=== PATIENT | male | born 1950 | race Caucasian/White ===

== ENCOUNTER 2016-07-01 07:15 | Emergency (ER) | payer OTHER ==
[2016-07-01 07:29] VITALS: BP 119/79
--- NOTE | 2016-07-01 07:42 | UC ---
Respiratory Complaint HPI - HPI Summary HPI Summary: The patient comes in today for: 1. Coughing, wheezing, post nasal drip, body aches: Onset: 4-5 days. Palliative/provocative: Albuterol inhaler helps. Quality: Irritating cough. Region: Lungs. Severity: 0/10 Time: Cough lasts a few seconds. Associated symptoms: Chest pain: None. Dyspnea: Present. Wheezing: Present Inhaler use: For several years. He has used Flovent in the past, but not in the last few months. Temperature: None taken. Rhinitis: Green. Cough production: Green. Body aches: "slight." 2. Dysuria, weak stream: The patient comes in today for: Onset: Last night. Palliative/provocative: Increased abdominal pressure helped with urination. Quality: Dysuria. Region: Severity: 0/10 at this time. Time: Pain comes and goes with urination Associated symptoms: Prostate disease: "I'm have ongoing prostatitis" and he is seeing (urologist) last seen in August of last year. He is seen once a year. He has not taken any antihistamine for his URI. * * - History of Current Complaint Chief Complaint: UCRespiratory Stated Complaint: COUGH URINARY ISSUE Time Seen by Provider: 07/01/16 07:33 Hx Obtained From: Patient, Family/Inspector Poising - Allergies/Home Medications Allergies/Adverse Reactions: Allergies Allergy/AdvReac Type Severity Reaction Status Date / Time Sulfa Antibiotics Allergy Severe Rash And Verified 03/29/16 18:11 Itching PMH/Surg Hx/FS Hx/Imm Hx Previously Healthy: No - Arthritis, chronic prostatitis Endocrine History Of: Denies: Diabetes, Thyroid Disease, Hyperthyroidism, Hypothyroidism, Dyslipidemia Cardiovascular History Of: Denies: Cardiac Disorders, Hypertension, Pacemaker/ICD, Myocardial Infarction , Congestive Heart Failure, Atrial Fibrillation, Deep Vein Thrombosis, Bleeding Disorders Respiratory History Of: Reports: Asthma - rare Denies: COPD, Bronchitis, Pneumonia, Pulmonary Embolism GI/ History Of: Denies: Gastroesophageal Reflux, Ulcer, Gastrointestinal Bleed, Gall Bladder Disease, Kidney Stones, Diverticulitis, Renal Disease, Urosepsis Neurological History Of: Denies: TIA, CVA, Dementia, Seizures, Migraine Psychological History Of: Denies: Anxiety, Depression, Bipolar Disorder, Schizophrenia, Post Traumatic Stress Disorder Cancer History Of: Denies: Lung Cancer, Colorectal Cancer, Breast Cancer, Prostate Cancer, Cervical Cancer Other History Of: Negative For: HIV, Hepatitis B, Hepatitis C, Anticoagulant Therapy - Surgical History Surgical History: Yes Surgery Procedure, Year, and Place: APPENDECTOMY. BILATERAL HAND SURGERY. november LEFT pernell-ureter CORRECTION - Family History Known Family History: Positive: Respiratory Disease - COPD in father (smoker) Negative: Cardiac Disease, Hypertension - Social History Occupation: Employed Full-time Alcohol Use: Occasionally Substance Use Type: None Smoking Status (MU): Former Smoker When Did the Patient Quit Smoking/Using Tobacco: 50 YRS - Immunization History Most Recent Influenza Vaccination: n/a Most Recent Tetanus Shot: <5yrs Most Recent Pneumonia Vaccination: n/a Review of Systems Constitutional: Negative Skin: Negative Eyes: Negative ENT: Nasal Discharge Respiratory: Cough Cardiovascular: Negative Gastrointestinal: Negative Genitourinary: Dysuria, Hematuria Musculoskeletal: Arthralgia All Other Systems Reviewed And Are Negative: Yes Physical Exam Triage Information Reviewed: Yes Appearance: Well-Appearing, No Pain Distress, Well-Nourished Vital Signs: Initial Vital Signs Temp 98.5 F 07/01/16 07:22 Pulse 77 07/01/16 07:22 Resp 18 07/01/16 07:22 BP 119/79 07/01/16 07:22 Pulse Ox 95 07/01/16 07:22 Vital Signs Reviewed: Yes Eyes: Positive: Conjunctiva Clear. Negative: Discharge ENT: Negative: Hearing grossly normal - He is slightly poor of hearing., Pharyngeal erythema, Nasal congestion, Nasal drainage, TM bulging, TM dull, TM red, Tonsillar swelling, Tonsillar exudate Dental: Negative: Gross Decay/Caries @, Dental Fracture @ Neck: Positive: Supple, Nontender, No Lymphadenopathy. Negative: Nuchal Rigidity Respiratory: Positive: Chest non-tender, No respiratory distress, No accessory muscle use, Wheezing - Slightly scattered wheezing.. Negative: Rhonchi Cardiovascular: Positive: RRR, No Murmur Abdomen Description: Positive: Nontender, No Organomegaly, Soft. Negative: Distended, Guarding Musculoskeletal: Positive: Strength Intact, ROM Intact Neurological: Positive: Alert, Muscle Tone Normal Psychological: Positive: Age Appropriate Behavior, Consolable Skin: Negative: rashes, breakdown UC Diagnostic Evaluation - Laboratory O2 Sat by Pulse Oximetry: 95 Diagnostic Studies Comment: Urine screen: Specific gravity: 1.015. WBC: 500. Nitrite: Positive. Blood: 5-10. Protein: 30. Glucose: (-) Respiratory Course/Dx - Course Course Of Treatment: Patient will be put on Levaquin to cover URI and prostatitis. - Differential Dx/Diagnosis Provider Diagnoses: Sinusitis. bronchitis. prostatitis. UTI. Discharge - Discharge Plan Condition: Stable Disposition: HOME Patient Education Materials: Prostatitis (ED), Sinusitis (ED), Acute Bronchitis (ED), Urinary Tract Infection in Men (ED) Additional Instructions: See your urologist for your urinary problems as soon as you can. Double up on your Flomax until you see your urologist or primary care provider. Please see your primary care provider in a week to see how well you are doing. If you get worse, please be seen sooner in the ER or through us.
== END 2016-07-01 08:21 | disposition home or self-care (01) ==
LOC: UCEAST 07:15
DX: J32.9 Chronic sinusitis, unspecified (principal); J40 Bronchitis, not specified as acute or chronic; N41.9 Inflammatory disease of prostate, unspecified; N39.0 Urinary tract infection, site not specified; R31.9 Hematuria, unspecified; Z88.2 Allergy status to sulfonamides; Z87.891 Personal history of nicotine dependence
CPT/HCPCS: 81002; 87077; 87086; 87186; 99212; G0463

== ENCOUNTER 2018-02-08 09:20 | Day surgery (SDC) | payer MEDICARE, OTHER ==
[~2018-02-08 09:20] MED LIST: Acetaminophen TAB* 325 MG PO PRN; Buffered Lidocaine 0.9% SYRIN* 5 ML/SYR SYRINGE INTRADERM ONE
[2018-02-08] MEDS ORDERED: Midazolam* 1 MG/ML 5 ML VIAL (5 MG) ONE (11:17)
[2018-02-08] MEDS ORDERED: fentaNYL* 50 MCG/ML 2 ML VIAL (100 MCG VIAL) ONE (11:27)
[2018-02-08] MEDS ORDERED: Lidocaine 1%* 5 ML VIAL ONE (12:24)
[2018-02-08] MEDS ORDERED: Neomycin/Polymy/Dex OPHTH.OIN* 3.5 GM ONE (12:24)
[2018-02-08] MEDS ORDERED: Phenylephr/Ketorolac 1%/0.3% OPH DROP BTL ONE (12:24)
[2018-02-08] MEDS ORDERED: Tetracaine 0.5% OPTH.SOL 4 ML* 1 DROP BTL ONE (12:24)
[2018-02-08] MEDS ORDERED: Ketorolac 0.5% OPHTH (NF) 0.5 % 5 ML BTL ONE (12:24)
[2018-02-08] MEDS ORDERED: Phenylephrine 2.5% OPTH.SOL* 2 ML BTL ONE (12:24)
[2018-02-08] MEDS ORDERED: Tropicamide 1% OPTH.SOL* BTL ONE (12:24)
[2018-02-08] MEDS ORDERED: Cyclopentolate 1% OPTH.SOL* 2 ML BTL ONE (12:24)
[2018-02-08] MEDS ORDERED: Propofol* 10 MG/ML 20 ML BTL IV PUSH ONE (12:33)
[2018-02-08 12:50] VITALS: BP 125/82
--- NOTE | 2018-02-09 11:15 | OP ---
DATE OF OPERATION: 02/08/18 - [facility] DATE OF : 50 SURGEON: Dr. Zion Perez. FRAME TENDER: None. ANESTHESIA: Topical with intravenous sedation. PRE-OP DIAGNOSIS: Cataract with pseudoexfoliation material, left eye. POST-OP DIAGNOSIS: Cataract with pseudoexfoliation material, left eye. OPERATIVE PROCEDURE: Phacoemulsification and cataract extraction with posterior chamber intraocular lens implant, left eye. COMPLICATIONS: None. BLOOD LOSS: None. DESCRIPTION OF PROCEDURE: The patient was brought to the operating room and received a drop of Tetracaine as well as intravenous sedation. He was prepped and draped in the usual sterile fashion for ophthalmic surgery and attention was directed to the left eye where a speculum was placed. It was noted that this pupil measured approximately 3.5 mm despite preoperative dilating drops. A paracentesis was created at the 5 o'clock position and 0.1 cc of 1 percent preservative-free lidocaine was injected into the anterior chamber followed by DisCoVisc. The eye was digitally stabilized while a 2.75 mm keratome was used to create a triplanar clear corneal incision. A Malyugin ring was introduced into the eye atraumatically. Omidria was added to the irrigating solution. A continuous curvilinear capsulorrhexis was created with a cystotome and Utrata forceps. BSS on a cannula was used to gently hydrodissect the lens from the capsule. With reduced pressure in the system, phacoemulsification was performed in a [id number] technique to create 4 fragments. These fragments were gently and removed using the phacoemulsification machine. Residual cortical material was irrigated and aspirated out of the eye. DisCoVisc was used to inflate the capsular bag. An AU00T0 20.5 diopter lens was and inserted into the capsular bag. DisCoVisc was removed from the posterior aspect of the lens. DisCoVisc was placed in the anterior chamber. The Malyugin ring was atraumatically removed. Residual DisCoVisc was removed from the eye using irrigation/aspiration. BSS on a cannula was used to hydrate the corneal stroma and seal the wound. At the end of the case, the pupil was round. The eye pressure appeared normal and the wound was watertight. The lens was stable and centered. The speculum was removed and topical Maxitrol ointment was placed on the surface of the eye. The eye was closed, patched and shielded and the patient was sent to the recovery room in stable condition with post operative instructions and followup appointment given. [id number]/CPS #: [id number] MTDD
== END 2018-02-08 13:14 | disposition home or self-care (01) ==
LOC: OREAST 09:20
PROVIDERS: ATTEND Ophthalmology
DX: H25.042 Posterior subcapsular polar age-related cataract, left eye (principal); Z87.891 Personal history of nicotine dependence; J45.909 Unspecified asthma, uncomplicated; M19.90 Unspecified osteoarthritis, unspecified site; Z79.899 Other long term (current) drug therapy
CPT/HCPCS: A9270-GY; C9447; J2250; J2704; J3010; V2632

== ENCOUNTER 2018-02-28 20:10 | Emergency (ER) | payer MEDICARE, OTHER ==
--- NOTE | 2018-02-28 23:13 | ED ---
Abdominal Pain/Male - HPI Summary HPI Summary: 67 y/o male presents to the ED c/o severe ABD pain and constipation for several days. Pt states he can feel a "large hard mass" that he cannot push out. Severe 10/10 pain aggravated with movement. 1x BM in 6 days - pt has not gone in 4 days. Shoulder sx 1 week ago, pt has been on opioids. Denies vomiting. - History of Current Complaint Chief Complaint: EDAbdPain Stated Complaint: CONSTIPATED Time Seen by Provider: 02/28/18 23:07 Hx Obtained From: Patient Onset/Duration: Lasting Days, Still Present Timing: Constant Severity Currently: Severe Pain Intensity: 10 Pain Scale Used: 0-10 Numeric Aggravating Factor(s): Movement - and barrett Alleviating Factor(s): Nothing Associated Signs And Symptoms: Negative: Vomiting - Allergies/Home Medications Allergies/Adverse Reactions: Allergies Allergy/AdvReac Type Severity Reaction Status Date / Time Sulfa (Sulfonamide Allergy Rash And Verified 02/28/18 20:16 Antibiotics) Itching PMH/Surg Hx/FS Hx/Imm Hx Previously Healthy: No Endocrine/Hematology History: Denies: Hx Anticoagulant Therapy, Hx Diabetes, Hx Thyroid Disease Cardiovascular History: Denies: Hx Congestive Heart Failure, Hx Deep Vein Thrombosis, Hx Hypertension , Hx Myocardial Infarction, Hx Pacemaker/ICD Respiratory History: Reports: Hx Asthma - ROUTINE AND PRN INHALERS, Other Respiratory Problems/Disorders - REACTIVE AIRWAY, AND [place] FEVER, HISTOPLASMOSIS INFECTION Denies: Hx Chronic Obstructive Pulmonary Disease (COPD), Hx Lung Cancer, Hx Pneumonia, Hx Pulmonary Embolism GI History: Denies: Hx Gall Bladder Disease, Hx Gastrointestinal Bleed, Hx Ulcer, Hx Urosepsis History: Denies: Hx Kidney Stones, Hx Renal Disease Comment Only: Other Problems/Disorders - 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 BILATERAL HAND SURGERY. november LEFT pernell-ureter CORRECTION Hx Anesthesia Reactions: No Infectious Disease History: No Infectious Disease History: Reports: Hx of Known/Suspected MRSA Denies: Hx Hepatitis, Hx Human Immunodeficiency Virus (HIV), History Other Infectious Disease, Traveled Outside the [place] in Last 30 Days - Family History Known Family History: Positive: None, Respiratory Disease - COPD in father ( smoker) Negative: Cardiac Disease, Hypertension - Social History Alcohol Use: Occasionally Substance Use Type: Reports: None Smoking Status (MU): Former Smoker Amount Used/How Often: 5-6 CIGARETTES PER DAY X 2 YEARS Have You Smoked in the Last Year: No Review of Systems Constitutional: Negative Eyes: Negative ENT: Negative Cardiovascular: Negative Respiratory: Negative Positive: Abdominal Pain, Other - constipation. Negative: Vomiting Genitourinary: Negative Musculoskeletal: Negative Skin: Negative Neurological: Negative Psychological: Normal All Other Systems Reviewed And Are Negative: Yes Physical Exam - Summary Physical Exam Summary: Appearance: Well-appearing, Well-nourished, lying in bed comfortably Skin: Warm, dry, no obvious rash Eyes: sclera anicteric, no conjunctival pallor ENT: mucous membranes moist, pharynx appears normal Neck: Supple, nontender Respiratory: Clear to auscultation, no signs of respiratory distress Cardiovascular: Normal S1, S2. No murmurs. Normal distal pulses in tibial and radial bilaterally. Abdomen: Soft, nontender, normal active bowel sounds present Musculoskeletal: Normal, Strength/ROM Intact Neurological: A&Ox3, awake and alert, mentation is normal, speech is fluent and appropriate Psychiatric: affect is normal, does not appear anxious or depressed Rectal: Large fecal impaction. Pt did not tolerate manual disimpaction. Triage Information Reviewed: Yes Vital Signs On Initial Exam: Initial Vitals Temp Pulse Resp BP Pulse Ox 100.7 F 85 18 148/90 95 02/28/18 20:13 02/28/18 20:13 02/28/18 20:13 02/28/18 20:13 02/28/18 20:13 Vital Signs Reviewed: Yes Diagnostics - Vital Signs Vital Signs Temp Pulse Resp BP Pulse Ox 02/28/18 22:48 85 155/94 96 02/28/18 22:47 82 94 02/28/18 20:13 100.7 F 85 18 148/90 95 - Laboratory Lab Statement: Any lab studies that have been ordered have been reviewed, and results considered in the medical decision making process. Abdominal Pain Fem Course/Dx - Course Assessment/Plan: Pt constipated for 6 days. Feels "large hard mass that he cannot get out". Shoulder sx 6 days ago, pt has been on opioids. Pt did not first tolerate manual disimpaction. Pt will be d/c home given golytely. - Diagnoses Provider Diagnoses: Fecal impaction Discharge - Sign-Out/Discharge Documenting (check all that apply): Patient Departure - Discharge Plan Condition: Good Disposition: HOME Patient Education Materials: Fecal Impaction (ED) Referrals: Chai Velazquez DO [Primary Care Provider] - Additional Instructions: Take the golytely, 8 oz every 15 minutes until you pass the stool. It has softened with the enemas and I was able to break it up somewhat manually, so hopefully this will get it cleared out. - Billing Disposition and Condition Condition: GOOD Disposition: Home - Attestation Statements Document Initiated by Scribe: Yes Documenting Scribe: Bob Nation Provider For Whom Kurt is Documenting (Include Credential): Robby Hernandez MD Scribe Attestation: Bob Sims, scribed for Robby Hernandez MD on 03/04/18 at 1835. Scribe Documentation Reviewed: Yes Provider Attestation: The documentation as recorded by the Bob hernandez accurately reflects the service I personally performed and the decisions made by me, Robby Hernandez MD
[2018-03-01] MEDS ORDERED: PEG 3000 GI LAVAGE* 1 GALLON PO ONE (01:00)
[2018-03-01 01:27] VITALS: BP 142/81
== END 2018-03-01 01:28 | disposition home or self-care (01) ==
LOC: ED 20:10
DX: K56.41 Fecal impaction (principal); Z87.891 Personal history of nicotine dependence; R10.9 Unspecified abdominal pain
CPT/HCPCS: 99283; A9270-GY

== ENCOUNTER 2018-03-01 10:43 | Observation (INO) | payer MEDICARE, OTHER ==
[2018-03-01] MEDS ORDERED: NS 0.9% 1000 ML* 1,000 ML IV ONE (10:52)
--- NOTE | 2018-03-01 11:03 | ED ---
GI/ HPI - HPI Summary HPI Summary: This pt is a 67 y/o male presenting to [facility] c/o rectal pain and constipation. Pt reports he has not had a bowel movement in 6 days. He states that 1 week ago he had right shoulder surgery and was given hydrocodone. Per , they did not follow the stool softner instructions as they had been advised after the surgery. Pt raters his rectal pain today 10/10 in severity. Pt was in the ED last night with the same complaints. He states the doctor was able to reach the stool but was not able to remove it. He was given 2 enemas and was discharged home with colonoscopy fluid (golytely). Pt states despite the medications he was unable to have a bowel movement. Pt presents today with increased rectal pain. Denies nausea, vomiting, chest pain, SOB. He is noted to have temperature of 100.2 F in the ED. - History of Current Complaint Chief Complaint: EDRectalPain Time Seen by Provider: 03/01/18 10:52 Stated Complaint: RECTAL PAIN Hx Obtained From: Patient Onset/Duration: Started Days Ago - 6, Still Present Timing: Lasting Days Current Severity: Severe Pain Intensity: 10 Location of Pain: Rectal Associated Signs and Symptoms: Positive: Rectal Pain, Constipation, Fever - low grade today Aggravating Factor(s): Nothing Alleviating Factor(s): Nothing - Additional Pertinent History Primary Care Physician: [id number] - Allergy/Home Medications Allergies/Adverse Reactions: Allergies Allergy/AdvReac Type Severity Reaction Status Date / Time Sulfa (Sulfonamide Allergy Rash And Verified 02/28/18 20:16 Antibiotics) Itching Home Medications: Home Medications Acetaminop/Codeine 30 MG TAB* [Tylenol/Codeine 30 MG TAB*] 1 tab PO TID PRN [History Confirmed 03/01/18] Albuterol 2.5MG/3ML (0.083%)* [Ventolin 2.5 MG/3 ML NEB.SHOSHANA*] 2.5 mg INH QID PRN 03/01/18 [History Confirmed 03/01/18] Albuterol inh POWDER (NF) [Proair Respiclick] 1 puff INH Q6HR PRN 03/01/18 [ History Confirmed 03/01/18] Ascorbic Acid [C-500] 1,500 mg PO DAILY 03/01/18 [History Confirmed 03/01/18] Budesonide/Formote 160/4.5(NF) [Symbicort 160/4.5 (NF)] 2 puff INH BID 03/01/18 [History Confirmed 03/01/18] Cholecalciferol TAB* [Vitamin D TAB*] 2,000 units PO DAILY 03/01/18 [History Confirmed 03/01/18] Diclofenac Sodium EC TAB* [Voltaren EC TAB*] 75 mg PO BID 03/01/18 [History Confirmed 03/01/18] Glucosa Alberto 2Kcl/Chondroitin Alberto [Glucosamine & Chondroitin Cap] 2 cap PO DAILY [History Confirmed 03/01/18] Naproxen Sodium [Aleve] 220 mg PO Q6HR PRN 03/01/18 [History Confirmed 03/01/18] [place]-3S/Dha/Epa/Fish Oil [Fish Oil 1,200 mg Softgel] 1 cap PO DAILY 03/01/18 [ History Confirmed 03/01/18] Pseudoephedrine HCL ER TAB* [Sudafed 12 Hour*] 240 mg PO BID PRN 03/01/18 [ History Confirmed 03/01/18] Shark Cartilage [Shark Fin Cartilage] 2,220 mg PO DAILY 03/01/18 [History Confirmed 03/01/18] Tiotropium CAP.INH* [Spiriva CAP.INH*] 2 cap INH DAILY 03/01/18 [History Confirmed 03/01/18] Turmeric Root Extract [Turmeric Curcumin] 1,000 mg PO DAILY 03/01/18 [History Confirmed 03/01/18] Vitamin B Complex CAP* [B Complex CAP*] 2 cap PO DAILY 03/01/18 [History Confirmed 03/01/18] Vitamin E CAP* 800 unit PO DAILY 03/01/18 [History Confirmed 03/01/18] PMH/Surg Hx/FS Hx/Imm Hx Endocrine/Hematology History: Denies: Hx Anticoagulant Therapy, Hx Diabetes, Hx Thyroid Disease Cardiovascular History: Denies: Hx Congestive Heart Failure, Hx Deep Vein Thrombosis, Hx Hypertension , Hx Myocardial Infarction, Hx Pacemaker/ICD Respiratory History: Reports: Hx Asthma - ROUTINE AND PRN INHALERS, Other Respiratory Problems/Disorders - REACTIVE AIRWAY, AND [place] FEVER, HISTOPLASMOSIS INFECTION Denies: Hx Chronic Obstructive Pulmonary Disease (COPD), Hx Lung Cancer, Hx Pneumonia, Hx Pulmonary Embolism GI History: Denies: Hx Gall Bladder Disease, Hx Gastrointestinal Bleed, Hx Ulcer, Hx Urosepsis History: Denies: Hx Kidney Stones, Hx Renal Disease Comment Only: Other Problems/Disorders - 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 BILATERAL HAND SURGERY. november LEFT pernell-ureter CORRECTION Hx Anesthesia Reactions: No Infectious Disease History: No Infectious Disease History: Reports: Hx of Known/Suspected MRSA Denies: Hx Hepatitis, Hx Human Immunodeficiency Virus (HIV), History Other Infectious Disease, Traveled Outside the [place] in Last 30 Days - Family History Known Family History: Positive: Respiratory Disease - COPD in father (smoker) Negative: Cardiac Disease, Hypertension - Social History Alcohol Use: Occasionally Substance Use Type: Reports: None Smoking Status (MU): Former Smoker Amount Used/How Often: 5-6 CIGARETTES PER DAY X 2 YEARS Have You Smoked in the Last Year: No Review of Systems Positive: Fever - low grade Negative: Chest Pain Negative: Shortness Of Breath Gastrointestinal: Other - POS: constipation, rectal pain Negative: Vomiting, Nausea All Other Systems Reviewed And Are Negative: Yes Physical Exam - Summary Physical Exam Summary: VITAL SIGNS: Reviewed. GENERAL: Patient is a well-developed and nourished male. Patient is in distress secondary to pain in rectum. HEAD AND FACE: Normocephalic and atraumatic. EYES: PERRLA, EOMI x 2, No injected conjunctiva. EARS: Hearing grossly intact. Ear canals and tympanic membranes are WNL. MOUTH: Oropharynx within normal limits. NECK: Supple, trachea is midline, no adenopathy, no JVD. CHEST: Symmetric, no tenderness at palpation LUNGS: Clear to auscultation bilaterally. No wheezing or crackles. CVS: RRR, S1 and S2 present, no murmurs or gallops appreciated. ABDOMEN: Soft, lower abdominal tenderness. No signs of distention. Decreased bowel sounds. No rebound no guarding, and no masses palpated. No abdominal bruit or pulsations. RECTAL EXAM: small amount of soft tool. In the proximal aspect there is hard stool that I'm able to touch but unable to reach. EXTREMITIES: FROM in all major joints, no edema, no cyanosis or clubbing. NEURO: Alert and oriented x 3. No acute neurological deficits. Speech is normal. SKIN: Dry and warm Triage Information Reviewed: Yes Vital Signs On Initial Exam: Initial Vitals Temp Pulse Resp BP Pulse Ox 100.2 F 110 18 137/99 96 03/01/18 10:46 03/01/18 10:46 03/01/18 10:46 03/01/18 10:46 03/01/18 10:46 Vital Signs Reviewed: Yes Diagnostics - Vital Signs Vital Signs Temp Pulse Resp BP Pulse Ox 03/01/18 10:46 100.2 F 110 18 137/99 96 - Laboratory Result Diagrams: 03/02/18 06:50 03/02/18 06:50 Lab Statement: Any lab studies that have been ordered have been reviewed, and results considered in the medical decision making process. - Radiology Abdomen XR Xray Interpretation: Positive (See Comments) - IMPRESSION: Air-fluid levels in the colon which may represent colitis or enterocolitis. No evidence of small bowel dilatation is noted. Dr. Sandoval has reviewed this report. Radiology Interpretation Completed By: Radiologist - CT Abdomen/Pelvis CT CT Interpretation Completed By: Radiologist Summary of CT Findings: IMPRESSION: Large amount of stool within the rectosigmoid colon including a stool ball within the rectum. The remainder of the colon is filled with liquid stools. Hepatomegaly with fatty infiltration of the liver. Dr. Sandoval has reviewed this report. - EKG 11:18 Cardiac Rate: NL - at 81 bpm EKG Rhythm: Sinus Rhythm EKG Interpretation: No ST elevations. Q wave in lead III. ST depression in leads V4-V6. GIGU Course/Dx - Course Assessment/Plan: This pt is a 67 y/o male presenting to [facility] ED c/o rectal pain and constipation. Pt reports he has not had a bowel movement in 6 days. He states that 1 week ago he had right shoulder surgery and was given hydrocodone. Per , they did not follow the stool softener instructions as they had been advised after the surgery. Pt raters his rectal pain today 10/10 in severity. Pt was in the ED last night with the same complaints. He states the doctor was able to reach the stool but was not able to remove it. He was given 2 enemas and was discharged home with Golytely. . Pt states despite the medications he was unable to have a bowel movement. Pt presents today with increased rectal pain. Denies nausea, vomiting, chest pain, SOB. Patient had 2 colonoscopies 1 year ago with normal results in the [facility]. He denies smoking. Blood work without any significant abnormality except for glucose of 166, CRP of 29.5. During the physical exam I noticed that the patient has some lower abdominal tenderness however when I performed the rectal exam the patient is having severe pain. I was able to touch with my finger some of the hard stool however the patient is not able to tolerate digital disimpaction. Abdomen x- ray impression: Air fluid levels in the colon which may represent colitis or enterocolitis. No evidence of small bowel dilation is noted. Blood work without any significant abnormality except for glucose 166, CRP of 29.5. I discussed the case with Dr. Rosales from GI and he recommends an abdominal pelvic CT with by mouth and IV contrast and admission to the hospitalist. I discussed the case with Dr. Finney who accepted the patient for admission. The patient continues to be uncomfortable, he was given Toradol for the pain. I am unable to give narcotics because that would worsen the symptoms of constipation. Dr. Rosales came and with conscious sedation he disimpacted the patient. Patient will be admitted to the hospitalist services. - Diagnoses Provider Diagnoses: Abdominal pain, Constipation - Physician Notifications Discussed Care Of Patient With: Zion Rosales Time Discussed With Above Provider: 13:07 Instructed by Provider To: Other - I discussed with Dr. Rosales, GI, who recommends cat scan and admission. [13:52] I discussed with Dr. Finney, hospitalist, who accepted pt for admission. Discharge - Sign-Out/Discharge Documenting (check all that apply): Patient Departure - Admit to [facility] All imaging exams completed and their final reports reviewed: Yes - Discharge Plan Condition: Stable Disposition: ADMITTED TO [facility] - Billing Disposition and Condition Condition: STABLE Disposition: Admitted to [facility] - Attestation Statements Document Initiated by Scribe: Yes Documenting Scribe: Mellissa Sullivan Provider For Whom Scribe is Documenting (Include Credential): Salo Sandoval MD Scribe Attestation: I, Mellissa Sullivan, scribed for Salo Sandoval MD on 03/02/18 at 1809. Scribe Documentation Reviewed: Yes Provider Attestation: The documentation as recorded by the [email or web address] accurately reflects the service I personally performed and the decisions made by me, Salo Sandoval MD
[2018-03-01 11:15] LABS: ABS Basophils 0.1 10^3/ul (0-0.2); ABS Eosinophils 0.1 10^3/ul (0-0.6); ABS Lymphocytes 1.7 10^3/ul (1.0-4.8); ABS Monocytes 1.1 10^3/ul (0-0.8); ABS Nucleated RBC 0 10^3/ul; Eosinophil % 1.2 % (0-6); Hematocrit 44 % (42-52); Hemoglobin 15.3 g/dl (14.0-18.0); Lymphocyte % 17.2 % (25-47); Mean Corpuscular HGB Conc 35 g/dl (31-36); Mean Corpuscular Hemoglobin 32 pg (27-31); Mean Corpuscular Volume 91 fL (80-94); Mean Platelet Volume 8.2 um3 (7.4-10.4); Nucleated Red Blood Cells % 0; Platelet Count 262 10^3/ul (150-450); Red Cell Distribution Width 14 % (10.5-15); White Blood Count 10.1 10^3/ul (3.5-10.8)
[2018-03-01] MEDS ORDERED: Ketorolac INJ* 30 MG/ML 1 ML VIAL IV PUSH ONE (11:20)
[2018-03-01 11:47] LABS: EGFR Non-African American 64.1 (>60)
--- NOTE | 2018-03-01 12:06 | RAD ---
Indication: Rectal pain and constipation. Flat and upright views of the abdomen demonstrates air-fluid level in the air distended colon. The possibility of colitis or enteritis should BE considered. Ossicles margins and organ silhouettes are unremarkable. IMPRESSION: Air-fluid levels in the colon which may represent colitis or enterocolitis. No evidence of small bowel dilatation is noted.
--- OUTSIDE RECORDS SUMMARY | 2018-03-01 12:11 | XMS REPORT | Continuity of Care Document ---
:1950 External Reference #:[id number] Author Name Zion Perez M.D. Address 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 Active Onset: 12/19/2015 Nuclear senile cataract Zion Perez M.D. Active Family History Date Family Member(s) Problem(s) Comments Father Emphazema Father Kidney Disease Mother Depression & Anxiety Mother Alzheimer's Disease Social History Type Date Description Comments Sex Unknown ETOH Use Occasionally consumes alcohol Tobacco Use Start: Unknown Patient has never smoked Smoking Status Reviewed: 02/09/18 Patient has never smoked Allergies, Adverse Reactions, Alerts Date Description Reaction Status Severity Comments 12/19/2015 Sulfa Antibiotics Active Medications Medication Date Status Form Strength Qnty SIG Indications Ordering Provider Vigamox Active Solution 0.5% 9ml 1 drop Zion 018 drops Perez, left M.D. eye four times a day Ketorolac Active Solution 0.5% 10ml 1 drops Zion Tromethamine 018 left Perez, eye M.D. twice a day Pred Forte Active Suspension 1% 10ml 1 drops Zion 018 left Perez, eye M.D. four times a day Proair HFA 00/00/0 Active Aerosol 108(90Base) John Paul, 000 mcg/Act Riya, PRETZEL COOKER Diclofenac Active Tablets DR 75mg [place], Sodium 000 Riya, PRETZEL COOKER Hydrocodone-Kamer[place] Active Tablets 5-325mg Unknown taminophen 000 Amoxicillin/Cla Active Tablets 875-125mg Unknown vulanate 000 Potassium Tamsulosin HCL Active Capsules 0.4mg Unknown 000 Flovent HFA Active Aerosol 110mcg/Act John Paul, 000 Riya, PRETZEL COOKER Immunizations Description No Information Available Vital Signs Date Vital Result Comment 02/09/2018 10:03am Intraocular Pressure Left Eye 17 mmHg 01/20/2018 2:31pm Intraocular Pressure Right Eye 16 mmHg Intraocular Pressure Left Eye 16 mmHg 11/05/2017 1:11pm Cornea Thickness Left Eye 545 m Cornea Thickness Right Eye 547 m Pachymetry adjusted IOP Right Eye 0 Pachymetry adjusted IOP Left Eye 0 07/08/2017 8:37am Intraocular Pressure Right Eye 15 mmHg Intraocular Pressure Left Eye 15 mmHg Results Description No Information Available Procedures Date Code Description Status 01/20/2018 21215 Ophthalmic Biometry By Partial Coherence Interferometry Completed W/Intra 01/20/2018 71995 Eye Exam Est Intermediate Completed 11/05/2017 74517 Oct, Optic Nerve Completed 11/05/2017 18051 Visual Field Exam Extended, Unilateral Or Bilateral Completed 11/05/2017 86452 Eye Exam Est Intermediate Completed 11/05/2017 32876 Corneal Pachymetry, Unilateral/Bilateral Completed 07/08/2017 44123 Ophthalmoscopy Subsequent Completed 07/08/2017 25796 Refraction Completed 07/08/2017 61232 Eye Exam Est Intermediate Completed 12/19/2015 50412 Ophthalmoscopy Initial Completed 12/19/2015 62259 Eye Exam New Intermediate Completed 08/15/2010 84689 Refraction Completed 08/15/2010 62695 Eye Exam New Comprehensive Completed Encounters Description No Information Available Plan of Treatment Future Appointment(s):03/15/2018 10:30 am - Jalen Oviedo, OD at [facility] Tinswc2401/2018 10:15 am - Jalen Oviedo, OD at [facility] Tdesln1102/09/2018 - Zion Perez M.D.[id number] Encounter for other specified surgical aftercareComments:The patient was seen post-operatively one day following surgery. The patient was advised that the eye tolerated the surgery well without complications. Patient was given eye drop schedule and implant card.The patient was told to wear an eye shield QHS for one week and sunglasses daily. The patient was also advised to contact us immediately if new symptoms or visual changes are noted such as pain , worsening redness, flashes, floaters or decrease in vision.Follow up:The patient is to return in one week to follow up after cataract surgery and sooner if needed.
--- OUTSIDE RECORDS SUMMARY | 2018-03-01 12:11 | XMS REPORT | Continuity of Care Document ---
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 Chai Velazquez MD Primary Care Physician Unavailable Payers Type Date Identification Numbers Payment Provider Subscriber Policy Number: [id number] [employer] [place] [employer] PayID: [id number] [address] [place] [address] Policy Number: [id number] [employer] Robbie Hart PayID: [id number] [address] [place] [address] Advance Directives Description No Information Available Problems [...] Patient has never smoked Smoking Status Reviewed: 02/15/18 Patient has never smoked Allergies, Adverse Reactions, Alerts Date Description Reaction Status Severity Comments 12/19/2015 Sulfa Antibiotics Active Medications Medication Date Status Form Strength Qnty SIG Indications Ordering Provider Ketorolac Active Solution 0.5% 10ml 1 drops Zion Tromethamine 018 left Perez, eye M.D. twice a day Pred Forte Active Suspension 1% 10ml 1 drops Zion 018 left Perez, eye M.D. four times a day Proair HFA Active Aerosol 108(90Base) John Paul, 000 mcg/Act Riya, YARN SIZER Diclofenac Active Tablets DR 75mg John Paul, Sodium 000 Riya, YARN SIZER Hydrocodone-Kameron Active Tablets 5-325mg Unknown taminophen 000 Amoxicillin/Cla Active Tablets 875-125mg Unknown vulanate 000 Potassium Tamsulosin HCL Active Capsules 0.4mg Unknown 000 Flovent HFA Active Aerosol 110mcg/Act [place], 000 Riya, YARN SIZER Vigamox Hx Solution 0.5% 9ml 1 drop Peter 018 - drops Perez, left M.D. 018 eye four times a day Immunizations Description No Information Available Vital Signs [...] Information Available Procedures Date Code Description Status 02/08/2018 69218 Extracapsular Cataract Removal W/Insertion Of Intraocular Completed Lens pr 01/20/2018 09504 Ophthalmic Biometry By Partial Coherence Interferometry Completed W/Intra 01/20/2018 50096 Eye Exam Est Intermediate Completed 11/05/2017 48716 Oct, Optic Nerve Completed 11/05/2017 77944 Visual Field Exam Extended, Unilateral Or Bilateral Completed 11/05/2017 70379 Eye Exam Est Intermediate Completed 11/05/2017 58903 Corneal Pachymetry, Unilateral/Bilateral Completed 07/08/2017 41207 Ophthalmoscopy Subsequent Completed 07/08/2017 69105 Refraction Completed 07/08/2017 51484 Eye Exam Est Intermediate Completed 12/19/2015 31515 Ophthalmoscopy Initial Completed 12/19/2015 59223 Eye Exam New Intermediate Completed 08/15/2010 17985 Refraction Completed 08/15/2010 65617 Eye Exam New Comprehensive Completed Encounters Description No Information Available Plan of Treatment Future Appointment(s):03/15/2018 10:30 am - Jalen Oviedo, OD at [facility] Zlqsdj3701/2018 - Jalen Oviedo [id number] Presence of intraocular lensFollow up:as scheduled 1 month post op refraction, sooner PRN
[2018-03-01] MEDS ORDERED: Iohexol 300* (CONTRAST) 10 ML SDV IV ONE (14:52)
[2018-03-01 14:57] LABS: Urine Appearance Clear; Urine Blood Negative (Negative); Urine Color Yellow; Urine Ketones Negative (Negative); Urine Protein Negative (Negative); Urine Specific Gravity 1.014 (1.010-1.030); Urine Urobilinogen Positive (Negative)
--- NOTE | 2018-03-01 15:55 | RAD ---
CLINICAL HISTORY: abdominal pain and constipation COMPARISON: March 27, 2015 TECHNIQUE: Multiple contiguous axial CT scans were obtained of the abdomen and pelvis after the administration of intravenous contrast. Coronal and sagittal multiplanar reformations are submitted for review. Oral contrast was administered. Delayed images were obtained through the abdomen. FINDINGS: LUNG BASES: There is dependent atelectasis of the right lung base. LIVER: The liver is diffusely low in attenuation compared to the spleen. There are no focal hepatic parenchymal masses. The liver measures 20.6 cm in long axis. BILE DUCTS: There is no intrahepatic or extrahepatic biliary dilatation. GALLBLADDER: The gallbladder is normal, without pericholecystic inflammatory change. PANCREAS: The pancreas is normal, without mass or ductal dilatation. SPLEEN: Normal in size and appearance. UPPER GI TRACT: Evaluation of the gastrointestinal tract is limited by incomplete gastric distention. The upper GI tract is unremarkable. SMALL BOWEL AND MESENTERY: The small bowel is normal in contour, course, and caliber. There is no obstruction or dilatation. COLON: There is a large amount of stool within the rectosigmoid colon including a large stool ball within the rectum. There is liquid stool noted with the remainder of the colon. ADRENALS: Normal bilaterally. KIDNEYS: The kidneys are normal in shape, size, contour, and axis. There is no hydronephrosis or nephrolithiasis. BLADDER: The bladder is incompletely distended but is grossly normal. PELVIC ORGANS: The prostate gland is normal. The seminal vesicles are symmetric. AORTA: The aorta is normal. IVC: Unremarkable LYMPH NODES: There is no lymphadenopathy by size criteria. ABDOMINAL WALL: There is no evidence for abdominal wall hernia. BONES AND SOFT TISSUES: There are mild diffuse degenerative changes. OTHER: None IMPRESSION: LARGE AMOUNT OF STOOL WITHIN THE RECTOSIGMOID COLON INCLUDING A STOOL BALL WITHIN THE RECTUM. THE REMAINDER OF THE COLON IS FILLED WITH LIQUID STOOL. HEPATOMEGALY WITH FATTY INFILTRATION OF THE LIVER.
[2018-03-01] MEDS ORDERED: Acetaminophen TAB* 325 MG PO PRN (16:07)
[2018-03-01] MEDS ORDERED: Albuterol 2.5 MG/3 ML NEB.SOL* (0.083%) INH PRN ×2 (16:07→16:19)
[2018-03-01] MEDS ORDERED: Albuterol HFA INHALER* 8 gm MDI INH PRN (16:19)
[2018-03-01] MEDS ORDERED: Ketorolac INJ* 30 MG/ML 1 ML VIAL IV PUSH PRN (16:28)
[2018-03-01] MEDS ORDERED: Ketorolac TAB * 10 MG TAB PO SCH (17:00)
[2018-03-01] MEDS: Tamsulosin CAP* 0.4 MG PO SCH (17:55)
[2018-03-01] MEDS ORDERED: fentaNYL* 50 MCG/ML 2 ML VIAL (100 MCG VIAL) ONE (18:35)
[2018-03-01] MEDS ORDERED: Midazolam* 1 MG/ML 10 ML VIAL (10 MG) ONE (18:36)
[2018-03-01] MEDS ORDERED: Spiriva Inhaler DEVICE* 1 EACH DEVICE INH ONE (21:00)
[2018-03-01] MEDS: Mometasone/Formoter 200/5 MDI INH SCH (21:16)
[2018-03-01] MEDS: Tiotropium CAP.INH* CAP.INH/18 MCG (USE ORDER SET !) INH SCH (21:17)
[2018-03-01] MEDS: NS 0.9% 1000 ML* 1,000 ML IV SCH (22:00)
[2018-03-01] MEDS: Heparin VIAL(*) 5000 UNITS/ML VIAL (FIVE THOUSAND) SUBCUT SCH (22:00)
--- NOTE | 2018-03-02 01:39 | HP ---
AMENDED REPORT NOW INCLUDES DESIGNATED COSIGNER HISTORY AND PHYSICAL: DATE OF ADMISSION: 03/01/18 PROVIDER: Jackie Krishnan NP PRIMARY CARE PHYSICIAN: Dr. Velazquez. ATTENDING PHYSICIAN: Dr. Caal * (dictated by Jackie Krishnan NP). CHIEF COMPLAINT: Constipation with opioid use. HISTORY OF PRESENT ILLNESS: This is a 67-year-old male with a past medical history of asthma, arthritis, and urinary retention, who presented to the ED with a 3-day history of rectal pain and constipation in the setting of opioid use. The patient had a right rotator cuff repair about a week ago and was given hydrocodone. He reports noncompliance with bowel regimen and has not had a bowel movement in 6 days. He did come to the ED yesterday as well and was given 2 enemas and GoLYTELY and did not have a bowel movement from that. Today , the ED provider attempted a manual disimpaction, but was unsuccessful. On exam, he has 10/10 rectal pain. He denies nausea, and vomiting. He denies chest pain, headache, dizziness, lower extremity edema. He does endorsed mild shortness of breath in the setting of not taking his asthma medications in a few days, however, there is no evidence of an acute exacerbation: he is satting well, he does not have increased work of breathing and his lungs are clear. He will be given his regularly scheduled inhalers as well as PRN albuterol. The pt also reports urinary retention due to not taking his flomax. He was straight cathed in the ED for 1100mL and given flomax.His labs are unremarkable. His temperature was 100.2 on admission and the rest of his vital signs were stable. An abdominal x-ray was done which showed no evidence of small bowel dilation, air fluid levels in the colon with may or enterocolitis. An abdominal CT was also done, which showed large amounts of stool in the rectosigmoid colon. GI has been consulted and we are awaiting Dr. Rosales's recommendations for disimpaction. The patient will be admitted to the hospitalist service for observation. PAST MEDICAL HISTORY: Asthma, arthritis, and urinary retention. PAST SURGICAL HISTORY: Appendectomy in 1992, bilateral hand surgery in 1982, left megaureter correction, and the recent right shoulder surgery. HOME MEDICATIONS: 1. Diclofenac 75 mg p.o. b.i.d. 2. Symbicort 2 puffs INH b.i.d. 3. Flomax 0.4 mg p.o. q.p.m. 4. Aleve 220 mg p.o. q.6h p.r.n. 5. Sudafed 240 mg p.o. b.i.d. p.r.n. 6. Spiriva 2 caps INH daily. 7. Flonase 2 spray both nares daily. 8. Albuterol inhalation powder 1 puff INH q.6h p.r.n. 9. Glucosamine and chondroitin caps 2 caps p.o. daily. 10. Shark Fin Cartilage 2220 mg p.o. daily. 11. Turmeric root extract 1000 mg p.o. daily. 12. Fish oil 1200 mg 1 cap p.o. daily. 13. Vitamin E cap 800 units p.o. daily. 14. Vitamin D 2000 units p.o. daily. 15. Ascorbic acid 1500 mg p.o. daily. 16. Albuterol 2.5 mg in 3 mL 2.5 mg INH 4 times a day p.r.n. 17. Vitamin B complex 2 cap p.o. daily. 18. Tylenol/Codeine 30 mg tab 1 tab p.o. t.i.d. p.r.n. He is also taking the following eyedrops: 1. Ketorolac-Tromethamine 2. Prednisolone acetate both of these he has been taking 2 times a day for his cataract surgery. ALLERGIES: The patient is allergic to SULFA DRUGS. FAMILY HISTORY: The patient's father has a history of COPD. He denies family history of cardiac disease. SOCIAL HISTORY: The patient is a former smoker. He smoked 5 cigarettes per day for 2 years. Alcohol: The patient endorses occasional alcohol use. The patient would like to be a full code and the patient's medical decision maker is his , Verna. REVIEW OF SYSTEMS: I performed a 14-point review of systems; all the pertinent positives and negatives are mentioned in the history of present illness. The remaining review of systems are negative. PHYSICAL EXAMINATION GENERAL APPEARANCE: The patient is in extreme pain. He is unable to be comfortable. He is wincing. He is in distress. VITAL SIGNS: The patient's vitals when I examined him were temperature 101.2, heart rate 68, respiratory rate 18, O2 sat 97% on room air. HEENT: Normocephalic, atraumatic. Pupils are equal, round, and reactive to light and accommodation. Extraocular movements were intact. NECK: Supple. No lymphadenopathy noted. There is no JVD appreciated. RESPIRATORY: No accessory muscle use and lungs are clear to auscultation. Normal work of breathing. CARDIAC: Regular rate and rhythm. S1 and S2 present. No murmurs, rubs, or gallops. ABDOMEN: Soft, but distended, tender in the suprapubic area, but nontender over the abdomen itself. Bowel sounds are present x4. EXTREMITIES: No lower extremity edema. DP and PT pulses were 2+ and symmetric. The patient does have a sling on his right arm from the shoulder surgery. MUSCULOSKELETAL: There is no clubbing or cyanosis noted. The patient exhibited 5/5 strength in all 4 extremities. NEUROLOGIC: The patient is alert and oriented x3. Sensation is intact. PSYCH: The patient is in distress. SKIN: There are no rashes or abnormalities seen. LAB DATA: White blood cell count 10.1, hemoglobin 15.3, hematocrit 44, and platelet count 262. Chemistry: Sodium 138, potassium of 3.8, chloride 101, bicarb 28. BUN 21, creatinine 1.14, glucose 166, lactic acid 1.5, calcium 10. Total bilirubin 1.1. AST 26, ALT 47. Alk phos 85. Total creatine kinase 173. C- reactive protein 29.51. Total protein 7.7, albumin 4.7, and globulin 3.0. Albumin and globulin ratio 1.6. Lipase less than 10. DIAGNOSTIC TESTING: EKG with normal sinus rhythm Abdomen/pelvis CT: showed a large amount of stool within the rectosigmoid colon including a stool bowel within the rectum. The remainder of the colon filled with liquid stool, hepatomegaly with fatty infiltration of the liver. Abdominal x-ray: showed air fluid levels in the colon, which may represent colitis or enterocolitis. No evidence of small bowel dilation. ASSESSMENT: The patient is a 67-year-old male with a past medical history significant for asthma, arthritis, and urinary retention, who presented to the ED with opioid associated constipation in the setting of recent surgery and bowel regimen noncompliance, not relieved by enemas or oral agents who will be admitted to the hospitalist service for observation and will be seen by GI. 1. Constipation secondary to opioid use. CT of the abdomen with large amounts of stool in the rectosigmoid colon. Dr. Rosales with GI is following. We are awaiting his recommendations about disimpaction plan. In the meantime, we will give IV fluids and Toradol and Tylenol in order to attempt to control his pain. We will avoid opioids as this is causing the problem. The patient will be n.p.o. 2. Urinary retention. The patient reports that he has stopped taking his Flomax and other medications in the setting of this extreme rectal pain and therefore developed urinary retention. He was straight cathed in the ED for 1100 cc. We will restart the Flomax and straight cath if necessary. 3. Asthma. The patient reports some slight shortness of breath as he has not been using his inhaler; however, no signs of an acute asthma exacerbation. We will restart his home inhalers of Symbicort, Spiriva, Flonase, and albuterol will be available p.r.n. 4. Recent history of cataract surgery. The patient can continue taking his eyedrops as prescribed (pt's brought them with her) and the patient can self-administer. 5. Fluids, electrolytes and nutrition. The patient is n.p.o. pending GI recommendations 6. DVT prophylaxis. The patient will be on heparin. 7. Code status is full code. 8. Disposition. Observation. Anticipate discharge when medically stable. TIME SPENT: Time spent for this admission was 60 minutes and 35 minutes were spent with the patient discussing medication, past medical history, and the events leading up to their arrival today and performing the physical exam. The case has been reviewed with the attending Dr. Caal, who agrees with the plan of care. JACKIE KRISHNAN, LEEROY [id number]/[facility] #: [id number] ANAHI
--- NOTE | 2018-03-02 01:48 | CONS ---
GASTROENTEROLOGY CONSULT: DATE: 03/01/18 CONSULTING PHYSICIANS: Salo Sandoval, Chai Velazquez. REASON FOR CONSULT: Fecal impaction with crampy severe lower abdominal pain. HISTORY OF PRESENT ILLNESS: This 67-year-old man has not had a bowel movement in 6 days. It appears to be due to opiates given after shoulder surgery performed in [place] recently. He came to the emergency room last night and was given a couple of enemas and sent home with Colyte. He took 2 of the 4 L. He feels more pressure and uncomfortable. He has not vomited. He comes in complaining of severe lower abdominal pain that occurs in crampy exacerbations every 5 to 10 minutes lasting a minute or two. He has not passed any blood. He states his usual bowel pattern is daily and without the need for laxatives. A year or two ago, he had a colonoscopy in the [place] system, which was said to be negative. He has never had this sort of thing before. PAST MEDICAL HISTORY: 1. Appendectomy in his 30s in the mid . 2. Ureteral correction, 1982. 3. Hand surgery, 2007. 4. History of asthma and/or bronchiectasis. MEDICATIONS: At home: Hydrocodone, Albuterol inhaler Symbicort Diclofenac 75 b.i.d Naproxen - intermittently Shark cartilage [place] fish oil. SOCIAL HISTORY: He is . REVIEW OF SYSTEMS: No history of TIA, CVA, seizure, [place], arrhythmias, syncope, hepatitis, jaundice, peptic ulcer disease, psoriasis, or dermatosis. PHYSICAL EXAM: He is uncomfortable, pacing in the room, complaining of crampy lower abdominal pain and at intervals bending over for 30 seconds. He is, however, in no obvious cardiorespiratory distress. He is afebrile. He has no adenopathy. Lungs show diminished breath sounds, but are clear and without wheezes. His abdomen is mildly rounded with active somewhat overactive bowel sounds, though no high-pitched sounds. The abdomen is soft, though there is a little bit of resistance with deep pressure and he is uncomfortable with deep pressure in a widespread area, though a little bit more below the umbilicus. He is, however, soft. Perianal inspection shows a little bit of fecal staining. Digital rectal is tolerated poorly, but there is a medium firm fecal plug in the rectum. It is not rock hard. He tolerates this poorly and rolls away. Extremities show no edema. Neurologic is nonfocal. DIAGNOSTIC STUDIES: CT scan - colon not dilated down to the level of the sigmoid and then there is a large fecal plug. IMPRESSION: Fecal impaction with somewhat of a panic reaction to his pain and inability to get a decent rectal for disimpaction. There is no sign of perforation or impending perforation, but he needs a sedated disimpaction. He is not likely to tolerate any technique short of anesthesia. Possibility of needing surgery or anesthesia to facilitate a rigid proctoscope was discussed, but hopefully that can be avoided. If most of the impaction or a sizeable amount can be withdrawn with a sedated exam, then he might be able to tolerate the volume of enemas to accomplish the rest of the task. [id number]/[facility] #: [id number] ANAHI
[2018-03-02] MEDS: NS 0.9% 1000 ML* 1,000 ML IV SCH ×2 (02:41→12:21)
[2018-03-02] MEDS: Heparin VIAL(*) 5000 UNITS/ML VIAL (FIVE THOUSAND) SUBCUT SCH ×2 (05:20→14:20)
[2018-03-02 07:06] LABS: ABS Basophils 0 10^3/ul (0-0.2); ABS Eosinophils 0.2 10^3/ul (0-0.6); ABS Neutrophils 4.1 10^3/ul (1.5-7.7); ABS Nucleated RBC 0 10^3/ul; Eosinophil % 3.1 % (0-6); Hematocrit 37 % (42-52); Hemoglobin 12.8 g/dl (14.0-18.0); Lymphocyte % 27.3 % (25-47); Mean Corpuscular HGB Conc 35 g/dl (31-36); Mean Corpuscular Hemoglobin 31 pg (27-31); Mean Corpuscular Volume 91 fL (80-94); Mean Platelet Volume 8.1 um3 (7.4-10.4); Nucleated Red Blood Cells % 0.1; Platelet Count 203 10^3/ul (150-450); Red Blood Count 4.08 10^6/ul (4.00-5.40); Red Cell Distribution Width 13 % (10.5-15); White Blood Count 7.4 10^3/ul (3.5-10.8)
[2018-03-02 07:22] LABS: EGFR Non-African American 72.8 (>60)
--- NOTE | 2018-03-02 07:51 | PN ---
Subjective Date of Service: 03/02/18 Interval History: patient reports he feels better he has had multiple loose large stools today. No further abdominal pain. No fever or chills. No nausea. Tolerating diet. Ok with DC to home Objective Active Medications: Acetaminophen (Tylenol Tab*) 650 mg PO Q4H PRN PRN Reason: FEVER/PAIN Last Admin: 03/01/18 17:55 Dose: 650 mg Albuterol (Ventolin 2.5 Mg/3 Ml Neb.Jeanette*) 2.5 mg INH QID PRN PRN Reason: SHORTNESS OF BREATH Albuterol (Ventolin Hfa Inhaler*) 1 puff INH Q6HR PRN PRN Reason: SHORTNESS OF BREATH Cholecalciferol (Vitamin D Tab*) 2,000 units PO DAILY [facility] Fluticasone Propionate (Flonase Nasal Eunice 50mcg*) 2 spray BOTH NARES DAILY [facility] Heparin Sodium (Porcine) (Heparin Vial(*)) 5,000 units SUBCUT Q8HR [facility] Last Admin: 03/02/18 05:20 Dose: 5,000 units Sodium Chloride (Ns 0.9% 1000 Ml*) 1,000 mls @ 125 mls/hr IV PER RATE [facility] Last Admin: 03/02/18 02:41 Dose: 125 mls/hr Ketorolac Tromethamine (Toradol Inj*) 30 mg IV PUSH Q8H PRN PRN Reason: PAIN Ketorolac Tromethamine (Ketorolac 0.5% Ophth (Nf)) 1 drop LEFT EYE BID [facility] Mometasone Furoate/Formoterol Fumar (Dulera 200/5 Mdi*) 2 puff INH BID [facility]; Protocol Last Admin: 03/01/18 21:16 Dose: 2 puff Prednisolone Acetate (Pred Forte 1%*) 1 drop LEFT EYE DAILY [facility] Tamsulosin HCl (Flomax Cap*) 0.4 mg PO QPM [facility] Last Admin: 03/01/18 17:55 Dose: 0.4 mg Tiotropium [place] (Spiriva Cap.Inh*) 2 cap INH DAILY [facility] Last Admin: 03/01/18 21:17 Dose: 2 cap Vital Signs - 8 hr 03/02/18 03:27 Temperature 97.9 F Pulse Rate 83 Respiratory 20 Rate Blood Pressure 153/86 (mmHg) O2 Sat by Pulse 95 Oximetry Oxygen Devices in Use Now: None Appearance: A+O x3 in NAD Eyes: No Scleral Icterus, PERRLA Ears/Nose/Mouth/Throat: Mucous Membranes Moist Neck: NL Appearance and Movements; NL JVP Respiratory: Symmetrical Chest Expansion and Respiratory Effort, Clear to Auscultation Cardiovascular: NL Sounds; No Murmurs; No JVD, RRR, No Edema Abdominal: NL Sounds; No Tenderness; No Distention, - Extremities: No Edema, No Clubbing, Cyanosis Skin: No Rash or Ulcers, No Nodules or Sclerosis Neurological: Alert and Oriented x 3, NL Sensation, NL Gait, NL Muscle Strength and Tone Lines/Tubes/Other Access: Clean, Dry and Intact Peripheral IV Nutrition: Taking PO's Result Diagrams: 03/02/18 06:50 03/02/18 06:50 Microbiology and Other Data: Microbiology 03/01/18 11:13 Nasal Screen MRSA (PCR) - Final Nasal Mrsa Not Detected Assess/Plan/Problems-Billing Assessment: 67 yo male with a PMH of asthma, arthritis and urinary retention who presented to the ED with opioid associated constipation not relieved by enemas or oral agents admitted to the hospitalist service for OBV. - Patient Problems (1) Fecal impaction Comment: - Recent opiod use s/p shouler surgery pt was not taking bowel regimen - Required manual disimpaction by GI - multiple large stools, as well as incontinence of stool -> no further incontinence since this am. - recommended continue bowel regimen with mirlax per GI if no BM - pt reports he is stopping his opioid medication. Discussed with GI - no need to follow up imaging unlss patient develops pain and no BMs again as outpt (2) Asthma Comment: Mild, stable. (3) DVT prophylaxis Comment: HSQ (4) Full code status Status and Disposition: OBV. Plan for DC to home
[2018-03-02] MEDS: Mometasone/Formoter 200/5 MDI INH SCH (08:21)
[2018-03-02] MEDS: Tiotropium CAP.INH* CAP.INH/18 MCG (USE ORDER SET !) INH SCH (08:21)
[2018-03-02] MEDS ORDERED: PTO:prednisoLONE 1% OPHTH.SUSP* 5 ML OPHTH.SUSP LEFT EYE SCH (09:00)
[2018-03-02] MEDS ORDERED: PTO:Ketorolac 0.5% OPHTH (NF) 0.5 % 5 ML BTL LEFT EYE SCH (09:00)
[2018-03-02] MEDS ORDERED: Fluticasone NASAL SPRAY 50MCG* 16 gm SPRAY BTL BOTH NARES SCH (09:00)
[2018-03-02] MEDS ORDERED: Cholecalciferol TAB* 1000 UNITS PO SCH (09:00)
--- NOTE | 2018-03-02 11:15 | PRO ---
DATE: 03/01/18 REFERRING PHYSICIANS: Chai Velazquez DO; Salo Sandoval MD, emergency room PROCEDURE: Manual disimpaction in the emergency room under sedation and flexible sigmoidoscopy with colonic decompression. INDICATION: This 67-year-old man developed impaction after taking opiates for shoulder pain following surgery. See separate consultation. Informed consent was obtained from the patient and his together. ENDOSCOPIST: Zion Rosales, MEDICATIONS: Midazolam 7, fentanyl 75. FINDINGS: He is a tall healthy appearing middle-aged man in distress with lower abdominal pressure, discomfort and then waves of pain periodically as he paces the room recurrently. The abdomen has active bowel sounds, though are hyperactive and not mechanical. Perianal inspection shows some fecal soilage. He was positioned on his side and 1 mg doses of midazolam and 25 mg doses of fentanyl were used alternately with good effect. He tolerated the exam subsequently well. Initial digital disimpaction proceeded utilizing at least 20 gloves, several disposable pads. A large volume of material was disposed off, no blood was seen at any time. Hard and gummy material was extracted. When it was felt enough space had been cleared to allow some insufflation, the colonoscope was inserted and carbon dioxide used and going above the level of the stool, the scope easily passed through the rectosigmoid junction and into the mid sigmoid where there was no distention and no solid stool, just liquid debris. A large volume of fluid was instilled to function as an enema. This indeed did work that way and peristalsis proceeded and some more feces were expelled. Higher level of the firm plug came down and was extracted digitally. This all took place over approximately 65 minutes. At the end, the rectum had no firm material and the abdomen did not feel distended. IMPRESSION: Fecal impaction - extracted with no sign of mucosal break or ulceration based on limited views, especially not seeing any blood. Stool softeners and osmotic laxatives are recommended to the patient's . [id number]/[facility] #: [id number] MTDD
[2018-03-02 14:38] VITALS: BP 127/70
[2018-03-02] MEDS: Tamsulosin CAP* 0.4 MG PO SCH (19:53)
--- NOTE | 2018-03-03 06:19 | DS ---
DISCHARGE SUMMARY: DATE OF ADMISSION: 03/01/18 DATE OF DISCHARGE: 03/02/18 PROVIDER: Ghanshyam Suárez NP ATTENDING PHYSICIAN: Dr. Dumont * (report dictated by Ghanshyam Suárez NP). PRIMARY CARE PROVIDER: Dr. Velazquez. DISCHARGE DIAGNOSES: Fecal impaction secondary to opiate use, requiring manual disimpaction. SECONDARY DIAGNOSES: 1. Asthma. 2. Arthritis. 3. Urinary retention. 4. Status post recent right shoulder surgery. HISTORY OF PRESENT ILLNESS AND HOSPITAL COURSE: Please see history and physical by Jackie Balderas NP for full admission details, but in summary this is a 67-year- old male with a recent history of right shoulder surgery in which he underwent a right rotator cuff repair 1 week ago and has been taking hydrocodone postoperatively. He reports that his orthopedic surgeon did recommend he accompany this with a bowel softener; however, he has not been doing this. He reports he has had no bowel movements in 6 days. He came to the emergency department, the day prior to admission, was given 2 enemas and GoLYTELY and was sent home. However, he did not have any bowel movement from that and returned to the emergency department yesterday on 03/01/18 with report of severe abdominal pain. He underwent a CT of the abdomen which showed, Impression: "Large amount of stool within the rectosigmoid colon including a stool ball within the rectum. The remainder of the colon is filled with liquid stool". The patient was given enema in the emergency department; however, this did not work as well as the ER provider could not perform a manual disimpaction due to the stool being too high up in the rectum. He was seen by exhibit carpenter, Dr. Rosales, who did a manual disimpaction in the emergency room under conscious sedation and a flex sigmoscopy with colonic decompression. Large amount of stool was extracted. There were no signs of mucosal break or ulceration based on the limited views and no blood noted. The patient was admitted to the medical floor to the hospitalist service for observation. He continued to have loose liquid stool overnight and did have episode of large incontinence. Since that time, the patient has not had any further incontinence , but has continued to have loose bowel movements. His reports that his abdominal pain has resolved. No nausea. He is tolerating his diet well. The patient reports that he plans to discontinue his hydrocodone and that his right shoulder pain feels that he can control this with acetaminophen only. He was instructed when he goes home to monitor his stools and as they slow down he may want to continue a bowel softener; however, if he does discontinue the hydrocodone he may not require this on a daily basis. The patient was instructed to increase his fluid intake and per GI recommended MiraLAX. DISCHARGE MEDICATIONS: 1. Voltaren 75 mg p.o. b.i.d. 2. Symbicort 160 mg/4.5 two puffs INH b.i.d. 3. Flomax 0.4 mg p.o. q.p.m. 4. Spiriva 2 capsule INH daily. 5. Fluticasone 2 sprays both nares daily. 6. Albuterol INH one puff q.6 hours p.r.n. 7. Glucosamine 2 caps p.o. daily. 8. Shark cartilage 2220 mg p.o. daily. 9. Turmeric root 1000 mg p.o. daily. 10. Rudyard-3 of 1200 mg p.o. daily. 11. Vitamin E 800 units p.o. daily. 12. Vitamin D 2000 units p.o. daily. 13. Ascorbic acid 1500 mg p.o. daily. 14. Albuterol nebulizer 2.5 mg INH 4 times a day p.r.n. 15. Vitamin B-complex 2 caps p.o. daily. 16. Acetaminophen 1000 mg p.o. q.8 hours p.r.n. pain. 17. MiraLAX 17 g p.o. daily. DISCHARGE PLAN: The patient is stable for discharge to home. He is to follow up with his primary care provider within 3 to 5 days. The patient was instructed to return to the emergency department with any worsening or concerning symptoms. TIME SPENT: Approximately 60 minutes was spent on this discharge. GHANSHYAM SUÁREZ, LEEROY [id number]/[facility] #: [id number] ANAHI
== END 2018-03-02 19:05 | disposition home or self-care (01) ==
LOC: ED 10:43 → MED 16:07 → INTOOBSV 16:07
PROVIDERS: ADMIT Internal Medicine; ATTEND Internal Medicine
DX: K56.41 Fecal impaction (principal); J45.909 Unspecified asthma, uncomplicated; M19.90 Unspecified osteoarthritis, unspecified site; R33.9 Retention of urine, unspecified; Z98.890 Other specified postprocedural states; F11.10 Opioid abuse, uncomplicated; R50.9 Fever, unspecified; K62.89 Other specified diseases of anus and rectum; Z87.891 Personal history of nicotine dependence
CPT/HCPCS: 36415; 74019; 74177; 80048; 80053; 81003; 82550; 83605; 83690; 85025; 86140; 87641; 93005; 94640; 96374; 96375; 99156; 99157; 99284; A9270-GY; G0378; J1644; J1885; J2250; J3010; Q9967

== ENCOUNTER 2019-02-25 09:59 | Emergency (ER) | payer MEDICARE, OTHER ==
[2019-02-25] MEDS ORDERED: Albuterol 0.5% CONC NEB.SOL* 5 MG/ML 20 ml BOT INH ONE (10:03)
--- NOTE | 2019-02-25 10:07 | ED ---
Shortness of Breath - HPI Summary HPI Summary: Patient is a 68 y/o M w/ Hx of asthma who presents to [facility] via EMS with chief complaint of SOB. He reports that SOB has been present for the past week with exacerbation today. EMS administered duoneb and dexamethasone treatment. Duoneb provided relief in Sx, per station helper. In room, patient is 98% o2 sat on RA, pulse 95, BP of 148/86. He denies fever but endorses a productive cough and WATKINS. Patient states that he is on three different inhalers daily. He notes that he has never required intubation for his asthma exacerbation. Allergy to sulfa drugs and hydrocodone is noted. On triage, pain is rated 5/10. Home medications are reviewed. - History of Current Complaint Hx Obtained From: Patient Onset/Duration: Lasting Weeks, Worse Since Current Severity: Moderate Aggravating Factors: Nothing Alleviating Factors: EMS Tx Associated Signs & Symptoms: Cough (Productive) - Allergy/Home Medications Allergies/Adverse Reactions: Allergies Allergy/AdvReac Type Severity Reaction Status Date / Time hydrocodone Allergy Constipatio Verified 12/27/18 18:57 n Sulfa (Sulfonamide Allergy Rash And Verified 12/27/18 18:54 Antibiotics) Itching PMH/Surg Hx/FS Hx/Imm Hx Endocrine/Hematology History: Denies: Hx Anticoagulant Therapy, Hx Diabetes, Hx Thyroid Disease Cardiovascular History: Denies: Hx Congestive Heart Failure, Hx Deep Vein Thrombosis, Hx Hypertension , Hx Myocardial Infarction, Hx Pacemaker/ICD Respiratory History: Reports: Hx Asthma - ROUTINE AND PRN INHALERS, Other Respiratory Problems/Disorders - REACTIVE [employer]WAY, AND [facility] FEVER, HISTOPLASMOSIS INFECTION Denies: Hx Chronic Obstructive Pulmonary Disease (COPD), Hx Lung Cancer, Hx Pneumonia, Hx Pulmonary Embolism GI History: Denies: Hx Gall Bladder Disease, Hx Gastrointestinal Bleed, Hx Ulcer, Hx Urosepsis History: Denies: Hx Kidney Stones, Hx Renal Disease Comment Only: Other Problems/Disorders - 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 BILATERAL HAND SURGERY. november LEFT pernell-ureter CORRECTION. R shoulder Hx Anesthesia Reactions: No Infectious Disease History: Reports: Hx of Known/Suspected MRSA Denies: Hx Hepatitis, Hx Human Immunodeficiency Virus (HIV), History Other Infectious Disease - Family History Known Family History: Positive: Respiratory Disease - COPD in father (smoker) Negative: Cardiac Disease, Hypertension - Social History Alcohol Use: Rare Substance Use Type: Reports: None Smoking Status (MU): Former Smoker Amount Used/How Often: 5-6 CIGARETTES PER DAY X 2 YEARS Have You Smoked in the Last Year: No Review of Systems Negative: Fever Positive: Shortness Of Breath, Cough - productive Positive: Headache All Other Systems Reviewed And Are Negative: Yes Physical Exam - Summary Physical Exam Summary: Constitutional: Well-developed, Well-nourished, Alert. (-) Distressed Skin: Warm, Dry HENT: Normocephalic; Atraumatic Eyes: Conjunctiva normal Neck: Musculoskeletal ROM normal neck. (-) JVD, (-) Stridor, (-) Tracheal deviation Cardio: Rhythm regular, rate normal, Heart sounds normal; Intact distal pulses; Radial pulses are 2+ and symmetric. (-) Murmur Pulmonary/Chest wall: Patient is speaking in short sentences. He has intercostal retractions, mild expiratory wheeze, and mild decrease of air entry bilaterally. Abd: Soft, (-) tenderness, (-) Distension, (-) Guarding, (-) Rebound Musculoskeletal: (-) Edema Lymph: (-) Cervical adenopathy Neuro: Alert, Oriented x3 Psych: Mood and affect Normal Triage Information Reviewed: Yes Vital Signs On Initial Exam: Initial Vitals Temp Pulse Resp BP Pulse Ox 97.7 F 98 18 148/86 97 02/25/19 10:01 02/25/19 10:01 02/25/19 10:01 02/25/19 10:01 02/25/19 10:01 Vital Signs Reviewed: Yes Procedures - Sedation Patient Received Moderate/Deep Sedation with Procedure: No Diagnostics - Laboratory Lab Statement: Any lab studies that have been ordered have been reviewed, and results considered in the medical decision making process. - Radiology CXR Radiology Interpretation Completed By: Radiologist Summary of Radiographic Findings: IMPRESSION: LOW LUNG VOLUMES, MILD BIBASILAR SUBSEGMENTAL ATELECTASIS. THIS REPORT WAS REVIEWED BY DR. HOUSER. Re-Evaluation - Re-Evaluation First Eval Re-Evaluation Time: 11:07 Change: Improved Comment: Patient reports that he feels better. He is speaking in full sentences. There is no wheezing on exam. He was offered another breathing treatment but this was declined by patient. Course/Dx - Course Course Of Treatment: Patient is here with an asthma exacerbation. Patient received a DuoNeb and Decadron in route via EMS. Patient had some improvement with that nebulas treatment but was in a store distress upon arrival. Patient was given an hour-long treatment with vast improvement in his risk for status. Patient was able to talk in full sentences and declined further treatment. Patient had negative chest x-ray. Patient discharged a second dose of Decadron and instructions to start a daily allergy pill as he thinks this is related to seasonal allergies. - Diagnoses Provider Diagnoses: Asthma exacerbation, Tachypnea Discharge ED - Sign-Out/Discharge Documenting (check all that apply): Patient Departure - discharge - Discharge Plan Condition: Stable Disposition: HOME Prescriptions: Dexamethasone TAB* [Decadron TAB*] 12 mg PO ONCE #3 tab Patient Education Materials: Asthma (ED) Referrals: Chai Velazquez DO [Primary Care Provider] - 3 Days Additional Instructions: Take Tori daily, your prescribed steroid, and your albuterol medication. Please return to ED for worse shortness of breath, fever and any other concerning or worsening symptoms. - Billing Disposition and Condition Condition: STABLE Disposition: Home - Attestation Statements Document Initiated by Nunuibe: Yes Documenting Scribe: KAYLEIGH COLLINS Provider For Whom Kurt is Documenting (Include Credential): RENEE HOUSER MD Scribe Attestation: KAYLEIGH Sims, scribed for RENEE HOUSER MD on 02/25/19 at 1232. Scribe Documentation Reviewed: Yes Provider Attestation: The documentation as recorded by the KAYLEIGH hernandez accurately reflects the service I personally performed and the decisions made by me, RENEE HOUSER MD Status of Scribe Document: Viewed
--- OUTSIDE RECORDS SUMMARY | 2019-02-25 10:54 | XMS REPORT | Continuity of Care Document ---
:1950 External Reference #:[id number] Author Name Jalen Duronon, OD Address [address] [place] [address] Care Team Providers Name Role Phone Chai Velazquez MD Care Team Information Drum Tester [phone] [facility] Care Team Information Drum Tester Problems Active Problems Provider Date Vitreous degeneration Zion Perez M.D. Onset: 12/19/2015 Nuclear senile cataract Zion Perez M.D. Onset: 12/19/2015 Social History Type Date Description Comments Sex Unknown ETOH Use Occasionally consumes alcohol Tobacco Use Start: Unknown Patient has never smoked Smoking Status Reviewed: 01/10/19 Patient has never smoked Allergies, Adverse Reactions, Alerts Active Allergies Reaction Severity Comments Date Sulfa Antibiotics 12/19/2015 Hydrocodone 10/07/2018 Medications Active Medications SIG Qnty Indications Ordering Provider Date Diclofenac Sodium Riya Coker, 75mg AIR CONDITIONING MECHANIC Tablets DR Tamsulosin HCL Unknown 0.4mg Capsules Flovent HFA Riya Ckoer, 110mcg/Act AIR CONDITIONING MECH[employer]IC Aerosol Prednisone take 2 tablets Unknown 10mg Tablets daily for 1 Week then 1 tablet daily for 1 Week Albuterol Sulfate HFA inhale 2 puffs by Unknown mouth every 4 108(90Base) mcg/Act hours if needed Aerosol Montelukast Sodium Unknown 10mg Tablets Immunizations Description No Information Available Vital Signs Date Vital Result Comment 10/07/2018 9:52am Intraocular Pressure Right Eye 15 mmHg Intraocular Pressure Left Eye 15 mmHg 07/27/2018 10:38am Intraocular Pressure Right Eye 15 mmHg Intraocular Pressure Left Eye 15 mmHg Results Description No Information Available Procedures Date Code Description Status 10/07/2018 49415 Ophthalmic Biometry By Partial Coherence Interferometry Completed W/Intra 10/07/2018 12162 Eye Exam Est Intermediate Completed 07/27/2018 47485 Fundus Photography W/Interpretation & Report Completed 07/27/2018 09805 Eye Exam Est Intermediate Completed Medical Devices Description No Information Available Encounters Type Date Location Provider Dx Diagnosis Office Visit 01/10/2019 Main Office Jalen Oviedo, OD H43.812 Vitreous 3:15p degeneration, left eye H25.11 Age-related nuclear cataract, right eye Assessments Date Code Description Provider 01/10/2019 H43.812 Vitreous degeneration, left eye Jalen Oviedo, OD 01/10/2019 H25.11 Age-related nuclear cataract, right eye Jalen Oviedo, OD 10/07/2018 H25.11 Age-related nuclear cataract, right eye Zion Perez M.D. 07/27/2018 Z96.1 Presence of intraocular lens Jalen Oviedo, OD 07/27/2018 H25.11 Age-related nuclear cataract, right eye Jalen Oviedo, OD 07/27/2018 H40.013 Open angle with borderline findings, low Jalen Oviedo, OD risk, bilateral Plan of Treatment Future Appointment(s):07/11/2019 8:15 am - Jalen Oviedo, OD at Main [id number]/2018 - Jalen Oviedo, ODH43.812 Vitreous degeneration, left eyeH25.11 Age- related nuclear cataract, right eyeFollow up:07/2019 full, sooner PRN Functional Status Description No Information Available Mental Status Description No Information Available Referrals Description No Information Available
[2019-02-25 12:40] VITALS: BP 143/81
== END 2019-02-25 12:30 | disposition home or self-care (01) ==
LOC: ED 09:59
DX: J45.901 Unspecified asthma with (acute) exacerbation (principal); R06.82 Tachypnea, not elsewhere classified; J98.11 Atelectasis; Z87.891 Personal history of nicotine dependence; Z88.5 Allergy status to narcotic agent; Z88.2 Allergy status to sulfonamides
CPT/HCPCS: 71046; 99283; J7611

== ENCOUNTER 2019-06-12 10:34 | Inpatient (IN) | payer MEDICARE, OTHER ==
[2019-06-12 11:17] LABS: ABS Basophils 0.1 10^3/ul (0-0.2); ABS Eosinophils 0.5 10^3/ul (0-0.6); ABS Lymphocytes 3.1 10^3/ul (1.0-4.8); ABS Monocytes 0.8 10^3/ul (0-0.8); Eosinophil % 7.2 %; Hematocrit 44 % (42-52); Hemoglobin 15.1 g/dL (14.0-18.0); Lymphocyte % 41.6 %; Mean Corpuscular HGB Conc 35 g/dL (31-36); Mean Corpuscular Hemoglobin 32 pg (27-31); Mean Corpuscular Volume 91 fL (80-94); Mean Platelet Volume 8.8 fL (7.4-10.4); Platelet Count 233 10^3/uL (150-450); Red Blood Count 4.76 10^6 /uL (4.18-5.48); Red Cell Distribution Width 13 % (10-15); White Blood Count 7.5 10^3/uL (3.5-10.8)
--- OUTSIDE RECORDS SUMMARY | 2019-06-12 11:20 | XMS REPORT | Continuity of Care Document ---
:1950 External Reference #:[id number] Author Name CHAD Ortiz (transmitted by agent of provider Roger Kirkpatrick) Address [address] 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 Manager Unavailable Problems Active Problems Provider Date Uncomplicated moderate persistent Roger Kirkpatrick MD Onset: 03/29/2019 asthma Common variable agammaglobulinemia Roger Kirkpatrick MD Onset: 03/29/2019 Bronchiolectasis CHAD Ortiz Onset: 04/19/2019 Fxwyb-9-oimwuiotskk deficiency CHAD Ortiz Onset: 2018 Allergic rhinitis CHAD Ortiz Onset: 04/19/2019 Allergic rhinitis due to pollen CHAD Ortiz Onset: 2018 Uncomplicated severe persistent CHAD Ortiz Onset: 2018 asthma Social History Type Date Description Comments Sex Unknown Tobacco Use Start: Unknown Patient has never smoked Smoking Status Reviewed: 04/19/19 Patient has never smoked Allergies, Adverse Reactions, Alerts Active Allergies Reaction Severity Comments Date Sulfa Antibiotics 03/29/2019 Opioids 03/29/2019 Medications Active Medications SIG Qnty Indications Ordering Provider Date Hypersal Roger Wolf 03/29/2019 7% MD Casimiro Nebulizer Advair Diskus Chai Velazquez, DO 250-50mcg/Dose Aerosol Albuterol Sulfate Chai Velazquez DO (2.5mg/3ML) 0.083% Nebulizer Vitamin B Complex Unknown Tablets Spiriva Respimat 2 inhalations once Unknown daily 2.5mcg/Act Aerosol Tamsulosin HCL Unknown 0.4mg Capsules Tori Allergy 1 tab everyday as Unknown needed 180mg Tablets Ascorbic Acid Unknown 500mg Tablets Vitamin C Unknown W/Vitamin E [id number] Capsules Vitamin E 1 by mouth every Unknown 400Unit day Capsules Vitamin D 1 by mouth every Unknown 1000Unit day fr winter Tablets Fish Oil 2 by mouth every Unknown 500mg day Capsules Glucosamine & Unknown Chondroiti N/Vitamin D Maximum Strength 9444-6531-289uk-mg- Unit Packet Fluticasone spray 2 sprays in Unknown Propionate each nostril daily 50mcg/Act Suspension Diclofenac Sodium Unknown 75mg Tablets Immunizations CPT Code Status Date Vaccine Lot # [id number] Given 03/29/2019 Pneumococcal Vaccine 2Yrs Or Older [id number] Vital Signs Date Vital Result Comment 04/19/2019 8:34am BP Systolic 126 mmHg BP Diastolic 80 mmHg Height 69 inches 5'9" Weight 144.00 lb BMI (Body Mass Index) 21.3 kg/m2 Heart Rate 82 /min Respiratory Rate 16 /min Body Temperature 97.1 F O2 % BldC Oximetry 95 % 03/29/2019 10:56am BP Systolic 124 mmHg BP Diastolic 86 mmHg Height 69 inches 5'9" Weight 144.00 lb BMI (Body Mass Index) 21.3 kg/m2 Heart Rate 93 /min Respiratory Rate 16 /min O2 % BldC Oximetry 97 % Results Test Acquired Date Facility Test Result H/L Range Note .CBC Auto Diff 04/19/2019 [facility] Z#Other <pending> [address] [place] [address] [phone] Laboratory test 04/19/2019 [facility] .Total IgE <pending> finding [address] [place] [address] [phone] Laboratory test 03/29/2019 [facility] Order <pending> finding Laboratory test 03/29/2019 [facility] Outside Lab Order <pending> [address] [place] [address] [phone] Procedures Date Code Description Status 04/19/2019 03856 Nitric Oxide Gas Determination Completed 04/19/2019 34831 Bronchodilation Responsiveness Spirometry Pre/Post Completed Bronchodil Adm 03/29/2019 08588 Allergy Tests Percutaneous W/ Allergenic Extracts Completed Medical Devices Description No Information Available Encounters Type Date Location Provider Dx Diagnosis Office Visit 04/19/2019 [facility] Dawson J45.50 Severe persistent 8:30a Fenstermacher, asthma, uncomplicated RPA-C J30.1 Allergic rhinitis due to pollen J30.89 Other allergic rhinitis E88.01 Auzhh-6-jasmwhyooqy deficiency 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 Fenstermacher, RPA-C uncomplicated 04/19/2019 J30.1 Allergic rhinitis due to pollen Kasia S. Fenstermacher, RPA -C 04/19/2019 J30.89 Other allergic rhinitis Kasia S. Fenstermacher, RPA-C 04/19/2019 E88.01 Qgvwp-4-qxdftjjegtr deficiency Kasia S. Fenstermacher, RPA -C 04/19/2019 D83.8 Other common variable Kasia S. Fenstermacher, RPA-C immunodeficiencies 04/19/2019 J47.9 Bronchiectasis, uncomplicated Kasia S. Fenstermacher, RPA-C 03/29/2019 J45.40 Moderate persistent asthma, Roger Kirkpatrick MD uncomplicated 03/29/2019 D83.8 Other common variable Roger Kirkpatrick MD immunodeficiencies Plan of Treatment Future Appointment(s):05/17/2019 10:00 am - Kasia S. Fenstermacher, RPA-C at [facility]/19/2019 - Kasia S. Fenstermacher, RPA-CJ45.50 Severe persistent asthma , uncomplicatedComments:Patient with recurrent lung infections, wheezing, shortness of breath and history of bronchiectasis.Patient has MZ allele for alpha-1 antitrypsin deficiency. His last spirometry was in April 2017. I will check a PFT and NIOX level today. I will also check a total IgE level and absolute eosinophil count. The results of his immune evaluation is pending. I will obtain records from Dr. Little's office. I have discussed changing his daily ICS/LABA to Breo. Patient just received 3 months of Advair 250/50 and would like to use it up before purchasing a different medication. I have advised him to contact the office if his respiratory symptoms worsen. Continue other daily inhalers as prescribed by Pulmonary.Follow up:6 weeks.J30.1 Allergic rhinitis due to pollenComments:Allergy testing showed 2/4 reactivity to 69/70 allergens. Patient's history does not indicate severeallergic rhinitis. He can continue his current Flonase and Tori for now. I do not suspect that allergic rhinitis is the underlying cause of his persistent respiratory symptoms.J30.89 Other allergic otkksueiQ22.01 Vdsdq-3-tzvuslghjeb nqlhenzflrF00.8 Other common variable immunodeficienciesComments:Follow-up in 6 weeks to review immune evaluation.J47.9 Bronchiectasis, uncomplicated Functional Status Description No Information Available Mental Status Description No Information Available Referrals Description No Information Available
[2019-06-12 11:25] LABS: Albumin 4.4 g/dL (3.2-5.2); Calcium 9.3 mg/dL (8.6-10.3); Potassium 3.7 mmol/L (3.5-5.0); Total Bilirubin 0.7 mg/dL (0.2-1.0)
[2019-06-12 11:28] LABS: Troponin I 0.01 ng/mL (<0.03)
[2019-06-12 11:31] LABS: Albumin/Globulin Ratio 1.6 (1-3); BUN/Creatinine Ratio 17.3 (8-20); EGFR African American 64.7 (>60); EGFR Non-African American 53.5 (>60); Globulin 2.7 g/dL (2-4); Total Protein 7.1 g/dL (6.4-8.9)
[2019-06-12] MEDS ORDERED: Albuterol/Ipratropium NEB.SOL* Albuterol 2.5 MG/Ipratropium 0.5 MG 3 ML ONE (14:27)
[2019-06-12] MEDS ORDERED: Magnesium Sulfate 2 GM IV* 2 GM/50 ML BAG IVPB ONE (14:34)
[2019-06-12] MEDS ORDERED: methylPREDNISolone 125 MG* 2 ML VIAL IV ONE (14:34)
--- NOTE | 2019-06-12 14:34 | ED ---
Shortness of Breath - HPI Summary HPI Summary: Patient is a 68 y/o M presenting to the ED for a chief complaint of shortness of breath. Patient is present with his . Patient states he has had cold symptoms for the last 10 days, including a cough with phlegm. He denies fever. The shortness of breath improves with oxygen. No aggravating factors are reported. Patient denies travel outside the [place] in the last 30 days. PMHx is significant for asthma and COPD. Patients denies the patient has a history of intubation. - History of Current Complaint Chief Complaint: EDShortnessOfBreath Hx Obtained From: Patient Onset/Duration: Sudden Onset Timing: Constant Current Severity: Moderate Dyspnea At: Rest Aggravating Factors: Nothing Alleviating Factors: Oxygen Associated Signs & Symptoms: Cough (Productive) - Allergy/Home Medications Allergies/Adverse Reactions: Allergies Allergy/AdvReac Type Severity Reaction Status Date / Time hydrocodone Allergy Constipatio Verified 12/27/18 18:57 n Sulfa (Sulfonamide Allergy Rash And Verified 12/27/18 18:54 Antibiotics) Itching Home Medications: Home Medications Acetaminophen [Acetaminophen Extra Strength] 1,000 mg PO Q8HR PRN 06/12/19 [ History Confirmed 06/12/19] Albuterol HFA INHALER* [Ventolin HFA Inhaler*] 2 puff INH Q4H PRN 06/12/19 [ History Confirmed 06/12/19] Ascorbic Acid TAB* [Vitamin C TAB*] 1,500 mg PO DAILY 06/12/19 [History Confirmed 06/12/19] Fexofenadine (NF) [Toir 180 (NF)] 180 mg PO DAILY PRN 06/12/19 [History Confirmed 06/12/19] Fluticasone-Salmeterol 250-50* [Advair Diskus 250-50*] 2 puff INH BID 06/12/19 [ History Confirmed 06/12/19] Magnesium Hydroxide LIQ* [Milk of Magnesia LIQ*] 30 ml PO BID PRN 06/12/19 [ History Confirmed 06/12/19] Power C Gummy 3 gum PO DAILY 06/12/19 [History Confirmed 06/12/19] Sodium Chloride(INHALANT) 7%* [Hyper-Gianluca 7%*] 4 ml INH BID 06/12/19 [History Confirmed 06/12/19] predniSONE 20 mg TAB [Deltasone 20 MG TAB*] 40 mg PO DAILY 06/12/19 [History Confirmed 06/12/19] PMH/Surg Hx/FS Hx/Imm Hx Previously Healthy: Yes Endocrine/Hematology History: Denies: Hx Anticoagulant Therapy, Hx Diabetes, Hx Thyroid Disease Cardiovascular History: Denies: Hx Congestive Heart Failure, Hx Deep Vein Thrombosis, Hx Hypertension , Hx Myocardial Infarction, Hx Pacemaker/ICD Respiratory History: Reports: Hx Asthma - ROUTINE AND PRN INHALERS, Hx Chronic Obstructive Pulmonary Disease (COPD), Other Respiratory Problems/Disorders - [facility] [employer], AND [facility] FEVER, HISTOPLASMOSIS INFECTION Denies: Hx Lung Cancer, Hx Pneumonia, Hx Pulmonary Embolism GI History: Denies: Hx Gall Bladder Disease, Hx Gastrointestinal Bleed, Hx Ulcer, Hx Urosepsis History: Denies: Hx Kidney Stones, Hx Renal Disease Comment Only: Other Problems/Disorders - LEFT ureter CORRECTION-1982 Musculoskeletal History: Reports: Hx Arthritis Sensory History: Reports: Hx Cataracts - LEFT EYE, Hx Contacts or Glasses - GLASSES, Hx Hearing Aid - BILATERAL Denies: Hx Legally Blind, Hx Deafness Opthamlomology History: Reports: Hx Cataracts - LEFT EYE, Hx Contacts or Glasses - GLASSES Denies: Hx Legally Blind EENT History: Denies: Hx Deafness Neurological History: Denies: Hx Dementia, Hx Migraine, Hx Seizures, Hx Transient Ischemic Attacks (TIA) Psychiatric History: Denies: Hx Anxiety, Hx Depression, Hx Panic Disorder, Hx Schizophrenia, Hx Bipolar Disorder - Surgical History Surgical History: Yes Surgery Procedure, Year, and Place: APPENDECTOMY-1982. BILATERAL HAND SURGERY. november LEFT pernell-ureter CORRECTION. R shoulder Hx Anesthesia Reactions: No Infectious Disease History: Yes Infectious Disease History: Reports: Hx of Known/Suspected MRSA Denies: Hx Hepatitis, Hx Human Immunodeficiency Virus (HIV), History Other Infectious Disease, Traveled Outside the [place] in Last 30 Days - Family History Known Family History: Positive: Respiratory Disease - COPD in father (smoker) Negative: Cardiac Disease, Hypertension - Social History Occupation: Retired Lives: With Family Alcohol Use: Rare Hx Substance Use: No Substance Use Type: Reports: None Hx Tobacco Use: Yes Smoking Status (MU): Former Smoker Amount Used/How Often: 5-6 CIGARETTES PER DAY X 2 YEARS Have You Smoked in the Last Year: No Review of Systems Negative: Fever Positive: Shortness Of Breath, Cough - Productive with phlegm All Other Systems Reviewed And Are Negative: Yes Physical Exam - Summary Physical Exam Summary: VITAL SIGNS: Reviewed. GENERAL: Patient is a well-developed and nourished male who is lying comfortable in the stretcher. Patient is in severe respiratory distress. HEAD AND FACE: No signs of trauma. No ecchymosis, hematomas or skull depressions. No sinus tenderness. EYES: PERRLA, EOMI x 2, No injected conjunctiva, no nystagmus. EARS: Hearing grossly intact. Ear canals and tympanic membranes are within normal limits. MOUTH: Oropharynx within normal limits. NECK: Supple, trachea is midline, no adenopathy, no JVD, no carotid bruit, no c- spine tenderness, neck with full ROM. CHEST: Symmetric, no tenderness at palpation. LUNGS: Clear to auscultation bilaterally. No crackles. Decreased breath sounds bilaterally, severe respiratory distress, unable to speak in full sentences, using intercostal muscles to breathe, wheezing diffusely. CVS: Regular rate and rhythm, S1 and S2 present, no murmurs or gallops appreciated. ABDOMEN: Soft, non-tender. No signs of distention. No rebound, no guarding, and no masses palpated. Bowel sounds are normal. EXTREMITIES: FROM in all major joints, no edema, no cyanosis or clubbing. NEURO: Alert and oriented x 3. No acute neurological deficits. Speech is normal and follows commands. SKIN: Dry and warm. Triage Information Reviewed: Yes Vital Signs On Initial Exam: Initial Vitals Temp Pulse Resp BP Pulse Ox 99.1 F 74 19 136/87 91 06/12/19 10:39 06/12/19 10:39 06/12/19 10:39 06/12/19 10:39 06/12/19 10:39 Vital Signs Reviewed: Yes Procedures - Sedation Patient Received Moderate/Deep Sedation with Procedure: No Diagnostics - Vital Signs Vital Signs Temp Pulse Resp BP Pulse Ox 06/12/19 14:20 98.2 F 104 24 00/00 93 06/12/19 12:16 99.3 F 73 16 130/78 91 06/12/19 10:39 99.1 F 74 19 136/87 91 - Laboratory Lab Results: Lab Results 02/03/20 02/03/20 02/03/20 Range/Units 10:55 10:55 10:55 WBC 7.5 (3.5-10.8) 10^3/uL RBC 4.76 (4.18-5.48) 10^6 /uL Hgb 15.1 (14.0-18.0) g/dL Hct 44 (42-52) % MCV 91 (80-94) fL MCH 32 H (27-31) pg MCHC 35 (31-36) g/dL RDW 13 (10-15) % Plt Count 233 (150-450) 10^3/uL MPV 8.8 (7.4-10.4) fL Neut % (Auto) 39.9 % Lymph % (Auto) 41.6 % [place] % (Auto) 10.2 % Eos % (Auto) 7.2 % Baso % (Auto) 1.1 % Absolute Neuts (auto) 3.0 (1.5-7.7) 10^3/ul Absolute Lymphs (auto) 3.1 (1.0-4.8) 10^3/ul Absolute Monos (auto) 0.8 (0-0.8) 10^3/ul Absolute Eos (auto) 0.5 (0-0.6) 10^3/ul Absolute Basos (auto) 0.1 (0-0.2) 10^3/ul Absolute Nucleated RBC 0.0 10^3/ul Nucleated RBC % 0.0 Sodium 139 (135-145) mmol/L Potassium 3.7 (3.5-5.0) mmol/L Chloride 106 (101-111) mmol/L Carbon Dioxide 25 (22-32) mmol/L Anion Gap 8 (2-11) mmol/L BUN 23 (6-24) mg/dL Creatinine 1.33 H (0.67-1.17) mg/dL Est GFR ( Amer) 64.7 (>60) Est GFR (Non-Af Amer) 53.5 (>60) BUN/Creatinine Ratio 17.3 (8-20) Glucose 130 H (70-100) mg/dL Lactic Acid 1.4 (0.5-2.0) mmol/L Calcium 9.3 (8.6-10.3) mg/dL Total Bilirubin 0.70 (0.2-1.0) mg/dL AST 22 (13-39) U/L ALT 40 (7-52) U/L Alkaline Phosphatase 70 (34-104) U/L Troponin I 0.01 (<0.03) ng/mL Total Protein 7.1 (6.4-8.9) g/dL Albumin 4.4 (3.2-5.2) g/dL Globulin 2.7 (2-4) g/dL Albumin/Globulin Ratio 1.6 (1-3) Result Diagrams: 06/12/19 10:55 06/12/19 10:55 Lab Statement: Any lab studies that have been ordered have been reviewed, and results considered in the medical decision making process. - Radiology Chest X-ray Radiology Interpretation Completed By: Radiologist Summary of Radiographic Findings: Chest X-ray IMPRESSION: HYPERINFLATION, CONSISTENT WITH COPD. NO ACTIVE CARDIOPULMONARY DISEASE. Reviewed by Dr. Sandoval. - EKG 10:46 Cardiac Rate: NL - 73 BPM EKG Rhythm: Sinus Rhythm ST Segment: Normal Ectopy: None Summary of EKG Findings: EKG at 10:46 shows normal sinus rhythm at 73 BPM, ST depressions in V2, V3, and aVF, no STEMI. Reviewed and interpreted by Dr. Sandoval. Re-Evaluation - Re-Evaluation First Eval Re-Evaluation Time: 14:48 Change: Worse Comment: At 14:48, patient is vomiting. I will give Zofran. Course/Dx - Course Assessment/Plan: Patient is a 68 y/o M presenting to the ED for a chief complaint of shortness of breath. Patient is present with his . Patient states he has had cold symptoms for the last 10 days, including a cough with phlegm. He denies fever. The shortness of breath improves with oxygen. No aggravating factors are reported. Patient denies travel outside the [place] in the last 30 days. PMHx is significant for asthma and COPD. Patients denies the patient has a history of intubation. In the ED course the patient was placed on a color television console monitor, IV access was obtained, IV fluids started, and patient was given DuoNebs and Solu-Medrol IV. The patient was placed on Vapotherm. Blood test is w/o any significant abnormality except for creatinine 1.33, glucose 130. Chest x-ray impression: Hyperinflation consistent with COPD. No active cardiopulmonary disease. The patient is feeling better. I discussed my physical exam findings and test results with Dr. Finney from the hospitalist services and she agrees to admit the patient to her services. The patient is hemodynamically stable, and alert and oriented x3. - Diagnoses Differential Diagnosis/HQI/PQRI: Positive: CHF, COPD Exacerbation, Pneumonia Provider Diagnoses: COPD (chronic obstructive pulmonary disease), Asthma exacerbation, Respiratory distress - Physician Notifications Discussed Care of Patient With: Tri Finney - At 14:56, Dr. Tri Finney reviewed the patients case and agrees to admit the patient to [facility]. Time Discussed With Above Provider: 14:56 Instructed by Provider To: Admit As Inpatient Discharge ED - Sign-Out/Discharge Documenting (check all that apply): Patient Departure - Admit - Discharge Plan Condition: Stable Disposition: ADMITTED TO [facility] - Billing Disposition and Condition Condition: STABLE Disposition: Admitted to [facility] - Attestation Statements Document Initiated by Scribe: Yes Documenting Scribe: Nataliia Freeman Provider For Whom Kurt is Documenting (Include Credential): Salo Sandoval MD Scribe Attestation: INataliia, scribed for Salo Sandoval MD on 06/12/19 at 2145. Scribe Documentation Reviewed: Yes Provider Attestation: The documentation as recorded by the Nataliia hernandez accurately reflects the service I personally performed and the decisions made by me, Salo Sandoval MD Status of Scribe Document: Viewed
[2019-06-12] MEDS: Albuterol/Ipratropium NEB.SOL* Albuterol 2.5 MG/Ipratropium 0.5 MG 3 ML INH SCH (14:40)
[2019-06-12] MEDS ORDERED: Ondansetron INJ* 2 MG/ML VIAL IV ONE (14:48)
[2019-06-12] MEDS ORDERED: Ondansetron INJ* 2 MG/ML VIAL ONE (14:49)
[2019-06-12] MEDS ORDERED: Albuterol HFA INHALER* 8 gm MDI INH PRN (16:20)
[2019-06-12] MEDS ORDERED: Cetirizine* 10 MG TAB PO PRN (16:20)
[2019-06-12] MEDS ORDERED: Magnesium Hydroxide LIQ* 30 ML UDC PO PRN (16:20)
[2019-06-12] MEDS ORDERED: cefTRIAXone(*) 1 GM in NS 0.9% 50 ML* 50 ML IVPB ONE (16:23)
[2019-06-12] MEDS ORDERED: Azithromycin 500 mg/250 ml NS 500 MG/250 ML BAG IVPB ONE (16:23)
[2019-06-12] MEDS ORDERED: Acetaminophen TAB* 325 MG PO PRN (16:32)
[2019-06-12] MEDS ORDERED: PROCHLORPERAZINE INJ 5 MG/ML 2 ML VIAL IV PRN (16:32)
[2019-06-12 16:52] LABS: Influenza A Molecular Negative (Negative); Influenza B Molecular Negative (Negative)
[2019-06-12] MEDS: Tamsulosin CAP* 0.4 MG PO SCH (18:02)
[2019-06-12] MEDS: Mometasone/Formoter 200/5 MDI INH SCH (20:03)
[2019-06-12] MEDS: Albuterol 2.5 MG/3 ML NEB.SOL* (0.083%) INH SCH ×2 (20:04→23:38)
[2019-06-12] MEDS: Heparin VIAL(*) 5000 UNITS/ML VIAL (FIVE THOUSAND) SUBCUT SCH (20:04)
--- NOTE | 2019-06-12 20:29 | HP ---
CC: Dr. Velazquez; Dr. Little; Dr. Kirkpatrick * HISTORY AND PHYSICAL: DATE OF ADMISSION: 06/12/19 TIME OF EVALUATION: 4:15 p.m. PRIMARY CARE PHYSICIAN: Dr. Velazquez. PUPPET ENGINEER: Dr. Little. LIBERAL ARTS AND HUMANITIES CHAIR: Dr. Kirkpatrick. CHIEF COMPLAINT: Shortness of breath. HISTORY OF PRESENT ILLNESS: Mr. Hart is a 68 years old male with a past medical history of asthma, apha-1 antitrypsin deficiency with bronchiectasis, allergic rhinitis, osteoarthritis, and BPH with urinary retention who presented to the emergency room with complaints of severe shortness of breath. The story is obtained from the patient and his at the bedside. They said that multiple family members came down with a cold a couple weeks ago and everyone felt better, but the patient's symptoms persisted. He complains of worsening of his usual cough with increased sputum production and purulence. He describes large amount of phlegm in the morning usually light, and for the past week, the amount has increased and is now yellowish lush greenish in color. He states that he had chills, but no fever associated with body aches, and at some point, he thought that he could have the flu. He denies chest pain , palpitations, nausea, vomiting, diarrhea, or urinary complaints, but he did have an episode of vomiting after receiving Solu-Medrol IV in the emergency room. The patient states that he has symptoms frequently, and when asked to pinpoint, his feels that he has exacerbations almost every month requiring some form of steroid therapy or adjustment of his other inhalers. As per ED provider's description, the patient was in severe respiratory distress when he arrived to the emergency room with accessory muscle use and he required Vapotherm while in the emergency room, but now he is comfortable on 5 L nasal cannula. He describes coughing fits that will not stop until he is able to expel all the secretions to the point that sometimes he feels he is going to pass out from coughing so much. PAST MEDICAL HISTORY: 1. Asthma. 2. Alpha-1 antitrypsin deficiency. 3. Bronchiectasis. 4. Allergic rhinitis. 5. Osteoarthritis. 6. BPH with urinary retention. PAST SURGICAL HISTORY: 1. Status post appendectomy in 1992. 2. Status post bilateral hand surgeries in 1982. 3. Status post left megaureter correction. 4. Status post right shoulder rotator cuff repair in February 2018. MEDICATION LIST: 1. Acetaminophen 1000 mg p.o. q.8 hours p.r.n. pain or fevers. 2. Albuterol 2.5 inhaled 4 times a day p.r.n. shortness of breath. 3. Albuterol HFA 2 puffs inhaled q.4 hours p.r.n. shortness of breath. 4. Vitamin C 1500 mg p.o. daily. 5. Cholecalciferol 2000 units p.o. daily. 6. Diclofenac sodium 75 mg p.o. b.i.d. 7. Fexofenadine 180 mg p.o. daily as needed for allergy symptoms. 8. Fluticasone nasal spray 50 mcg 2 sprays to both nares daily. 9. Fluticasone/salmeterol 250/50 two puffs inhaled b.i.d. 10. Glucosamine chondroitin 2 capsules p.o. daily. 11. Milk of magnesia 30 mL p.o. b.i.d. as needed for constipation. 12. Fish oil 1 capsule p.o. daily. 13. Power C gummies, 3 gummies p.o. daily. 14. Shark Cartilage 2250 mg p.o. daily. 15. Hyper-Gianluca 7% 4 mL inhaled b.i.d. 16. Tamsulosin 0.4 mg p.o. at bedtime. 17. Spiriva 2 capsules inhaled daily. 18. Turmeric 1000 mg p.o. daily. 19. Vitamin B complex 2 capsules p.o. daily. 20. Vitamin E 800 units p.o. daily. ALLERGIES: The patient had severe constipation with HYDROCODONE and he has rash and itching with SULFA. FAMILY HISTORY: The patient's father was a smoker and had a history of COPD and multiple family members on his mother's side of the family had asthma. SOCIAL HISTORY: The patient was a smoker for a short period of time when he was younger, 5 cigarettes a day for 2 years. He drinks alcohol occasionally. Denies any drug use. Surrogate decision maker is his , Verna Hart, phone number is [phone]. REVIEW OF SYSTEMS: A 14-point review of systems was performed, and all the pertinent negative and positive findings are in the HPI. PHYSICAL EXAMINATION GENERAL: The patient is a pleasant, elderly gentleman, sitting up in the ED stretcher, in no acute distress. VITAL SIGNS: Temperature 98.2, heart rate is 89, respiratory rate is 18, oxygen saturation is 92% on 5 L nasal cannula, blood pressure is 132/73. HEENT: Pupils are equal. Moist mucous membranes. CHEST: Breath sounds bilaterally with no rhonchi or wheezing, but the patient does have coarse crackles on both bases. There is no intercostal retraction, no accessory muscle use, and no wheezing at the time of my evaluation. CVS: Normal S1, S2. Regular rate and rhythm. ABDOMEN: Soft, nontender, nondistended. Bowel sounds are present. EXTREMITIES: No edema. NEUROLOGIC: He is alert and oriented x3. He is able to move all 4 extremities. DIAGNOSTIC STUDIES/LAB DATA: The patient had a CBC that showed WBC of 7.5, hemoglobin 15.1, hematocrit 44, platelets 233 with 39% neutrophils, 7% eosinophils. Chemistry showed a sodium of 139, potassium of 3.7, chloride 106, bicarb of 25, BUN of 23, creatinine of 1.3, glucose of 130, lactic acid is 1.4, calcium is 9.3. LFTs are normal. Troponin is 0.01. Influenza A and B are negative. Chest x-ray showed hyperinflation, but no active cardiopulmonary disease. EKG done on 06/12/19 at 10:46 a.m. shows sinus rhythm at 73 beats per minute with no acute ischemic changes. No significant change when compared to his prior EKG from December 2018. ASSESSMENT AND PLAN: Mr. Hart is a 68 years old male with a past medical history of asthma, allergic rhinitis, alpha-1 antitrypsin deficiency, bronchiectasis, osteoarthritis, BPH with urinary retention who presented to the emergency room in severe respiratory distress secondary to asthma/ bronchiectasis exacerbation. 1. Acute hypoxic respiratory failure secondary to asthma and bronchiectasis exacerbation. The patient will be admitted to the medical floor. Initially in the emergency room, he was in respiratory distress with accessory muscle use and requiring Vapotherm, but now he is comfortable on a nasal cannula of 5 L per minute. 2. Asthma/bronchiectasis exacerbation. Although the patient's asthma appears to be severe, persistent in nature, on his last visit to Dr. Kirkpatrick's office, the plan was to change him from Advair to Breo. He declined it at that time as he had just filled a 90-day supply of Advair and he wanted to finish that before changing medications. He does endorse more sputum production, especially in the morning, compatible with exacerbation on his bronchiectasis. His chest x-ray did not show a discrete infiltrate. He will be admitted to the medical floor and he will be treated with ceftriaxone, Zithromax, steroids, and bronchodilators. Although this may be a little far fetched, the patient has had progressive eosinophilia, and although only slightly elevated at 7.2, it was 0.2 in March 2019. The patient has also had progressive worsening of his renal function, now with a creatinine of 1.3. This may be secondary to NSAID use, but I am concerned that he may be progressing to . He does not have any signs of vasculitis at this time, but he does have uncontrolled asthma and allergic rhinitis with progressive eosinophilia. On top of treating his exacerbation now, I am also going to check an ANCA panel, CRP, and sed rate as well as an IgE level. In the past, he had EVANGELISTA, anti-CCP all negative. For completion of workup, we are also going to check a rapid influenza. 3. Benign prostatic hypertrophy. We will continue Flomax. 4. DVT prophylaxis: The patient has a score of 2 and he will be started on subcutaneous heparin. 5. Code status is full. TIME SPENT: Approximately 65 minutes was spent with the patient and interview, medical records review, physical examination to complete this admission, more than half this time was spent [id number] with the patient in coordination of care. [id number]/[facility] #: [id number] ANAHI
[2019-06-12] MEDS ORDERED: Sodium Chloride(INHALANT) 7%* 4 ML NEB.SOLN INH SCH (21:00)
[2019-06-13] MEDS ORDERED: Albuterol 2.5 MG/3 ML NEB.SOL* (0.083%) INH PRN (01:07)
[2019-06-13] MEDS: methylPREDNISolone SOD 40 MG* 1 ML VIAL IV SCH ×2 (05:12→18:00)
[2019-06-13] MEDS: Heparin VIAL(*) 5000 UNITS/ML VIAL (FIVE THOUSAND) SUBCUT SCH ×3 (05:12→21:13)
[2019-06-13] MEDS: Ascorbic Acid TAB* 500 MG PO SCH (07:54)
[2019-06-13] MEDS: Cholecalciferol TAB* 1000 UNITS PO SCH (07:55)
[2019-06-13] MEDS: Vitamin E CAP* 400 UNIT PO SCH (07:55)
[2019-06-13] MEDS: Vitamin B Complex TAB PO SCH (07:55)
[2019-06-13] MEDS: Mometasone/Formoter 200/5 MDI INH SCH ×2 (08:19→21:00)
[2019-06-13] MEDS: SPIRIVA Respimat* (tiotropium) 2.5 mcg/inh Inhaler INH SCH (08:20)
[2019-06-13] MEDS: Fluticasone NASAL SPRAY 50MCG* 16 gm SPRAY BTL BOTH NARES SCH (08:59)
--- NOTE | 2019-06-13 15:12 | PN ---
Subjective Date of Service: 06/13/19 Interval History: Pt still c/o "cough attacks", needs 4 l 02 when ambulating, not using 02 at home Objective Active Medications: Acetaminophen (Tylenol Tab*) 650 mg PO Q6H PRN PRN Reason: MILD PAIN or TEMP > 100.4 Albuterol (Ventolin Hfa Inhaler*) 2 puff INH Q4H PRN PRN Reason: SHORTNESS OF BREATH Albuterol (Ventolin 2.5 Mg/3 Ml Neb.Jeanette*) 2.5 mg INH Q4H PRN PRN Reason: SOB/WHEEZING Ascorbic Acid (Vitamin C Tab*) 1,500 mg PO DAILY [facility] Last Admin: 06/13/19 07:54 Dose: 1,500 mg Cetirizine HCl (Zyrtec*) 10 mg PO DAILY PRN; Protocol PRN Reason: Allergy Symptoms Last Admin: 06/13/19 05:11 Dose: 10 mg Cholecalciferol (Vitamin D Tab*) 2,000 units PO DAILY [facility] Last Admin: 06/13/19 07:55 Dose: 2,000 units Fluticasone Propionate (Flonase Nasal [place] 50mcg*) 2 spray BOTH NARES DAILY [facility] Last Admin: 06/13/19 08:59 Dose: 2 spray Heparin Sodium (Porcine) (Heparin Vial(*)) 5,000 units SUBCUT Q8HR [facility] Last Admin: 06/13/19 14:54 Dose: 5,000 units Azithromycin (Zithromax 500 Mg/250 Ml) 500 mg in 250 mls @ 250 mls/hr IVPB Q24H [facility] Ceftriaxone Sodium 1 gm/ (Sodium Chloride) 50 mls @ 100 mls/hr IVPB Q24H [facility] Magnesium Hydroxide (Milk Of Magnesia Liq*) 30 ml PO BID PRN PRN Reason: CONSTIPATION Last Admin: 06/13/19 05:11 Dose: 30 ml Methylprednisolone Sodium Succinate (Solu-Medrol 40 Mg) 40 mg IV Q12H [facility] Last Admin: 06/13/19 05:12 Dose: 40 mg Mometasone Furoate/Formoterol Fumar (Dulera 200/5 Mdi*) 2 puff INH BID [facility] Last Admin: 06/13/19 08:19 Dose: 2 puff Prochlorperazine Edisylate (Compazine Inj*) 5 mg IV Q6H PRN PRN Reason: NAUSEA/VOMITING Tamsulosin HCl (Flomax Cap*) 0.4 mg PO QPM [facility] Last Admin: 06/12/19 18:02 Dose: 0.4 mg Tiotropium [place] (Spiriva Respimat 2.5 Mcg) 2 puff INH DAILY [facility] Last Admin: 06/13/19 08:20 Dose: 2 puff Vitamin B Complex/Vitamin E (B Complex-50*) 2 tab PO DAILY [facility] Last Admin: 06/13/19 07:55 Dose: 2 tab Vitamin E (Vitamin E Cap*) 800 unit PO DAILY [facility] Last Admin: 06/13/19 07:55 Dose: 800 unit Vital Signs - 8 hr 06/13/19 06/13/19 06/13/19 07:18 07:43 11:03 Temperature 97.3 F 98.5 F Pulse Rate 66 76 Respiratory 20 19 20 Rate Blood Pressure 135/73 137/72 (mmHg) O2 Sat by Pulse 95 Oximetry 06/13/19 13:48 Temperature Pulse Rate Respiratory Rate Blood Pressure (mmHg) O2 Sat by Pulse 96 Oximetry Oxygen Devices in Use Now: Nasal Cannula Appearance: 68 yo M in nAD, aAOx3 Eyes: No Scleral Icterus, PERRLA Ears/Nose/Mouth/Throat: NL Teeth, Lips, Gums, Mucous Membranes Moist Neck: NL Appearance and Movements; NL JVP, Trachea Midline Respiratory: Symmetrical Chest Expansion and Respiratory Effort, - - rhonchi and wheezes b/l mid to lower lungs Cardiovascular: NL Sounds; No Murmurs; No JVD, RRR Abdominal: NL Sounds; No Tenderness; No Distention Lymphatic: No Cervical Adenopathy Extremities: No Edema Skin: No Nodules or Sclerosis Neurological: Alert and Oriented x 3, NL Muscle Strength and Tone Result Diagrams: 06/12/19 10:55 06/12/19 10:55 Additional Lab and Data: Lab Results 06/12/19 06/12/19 06/12/19 Range/Units 10:55 10:55 10:55 WBC 7.5 (3.5-10.8) 10^3/uL RBC 4.76 (4.18-5.48) 10^6 /uL Hgb 15.1 (14.0-18.0) g/dL Hct 44 (42-52) % MCV 91 (80-94) fL MCH 32 H (27-31) pg MCHC 35 (31-36) g/dL RDW 13 (10-15) % Plt Count 233 (150-450) 10^3/uL MPV 8.8 (7.4-10.4) fL Neut % (Auto) 39.9 % Lymph % (Auto) 41.6 % [place] % (Auto) 10.2 % Eos % (Auto) 7.2 % Baso % (Auto) 1.1 % Absolute Neuts (auto) 3.0 (1.5-7.7) 10^3/ul Absolute Lymphs (auto) 3.1 (1.0-4.8) 10^3/ul Absolute Monos (auto) 0.8 (0-0.8) 10^3/ul Absolute Eos (auto) 0.5 (0-0.6) 10^3/ul Absolute Basos (auto) 0.1 (0-0.2) 10^3/ul Absolute Nucleated RBC 0.0 10^3/ul Nucleated RBC % 0.0 Sodium 139 (135-145) mmol/L Potassium 3.7 (3.5-5.0) mmol/L Chloride 106 (101-111) mmol/L Carbon Dioxide 25 (22-32) mmol/L Anion Gap 8 (2-11) mmol/L BUN 23 (6-24) mg/dL Creatinine 1.33 H (0.67-1.17) mg/dL Est GFR ( Amer) 64.7 (>60) Est GFR (Non-Af Amer) 53.5 (>60) BUN/Creatinine Ratio 17.3 (8-20) Glucose 130 H (70-100) mg/dL Lactic Acid 1.4 (0.5-2.0) mmol/L Calcium 9.3 (8.6-10.3) mg/dL Total Bilirubin 0.70 (0.2-1.0) mg/dL AST 22 (13-39) U/L ALT 40 (7-52) U/L Alkaline Phosphatase 70 (34-104) U/L Troponin I 0.01 (<0.03) ng/mL Total Protein 7.1 (6.4-8.9) g/dL Albumin 4.4 (3.2-5.2) g/dL Globulin 2.7 (2-4) g/dL Albumin/Globulin Ratio 1.6 (1-3) Assess/Plan/Problems-Billing Assessment: 67 yo male with a PMH of asthma,alpha 1 antitripsin deff. arthritis presents with asthma exacerbation - Patient Problems (1) Asthma Comment: in exacerbation in acute hypoxemic resp failure requiring 02 cont Azithro/Ceftriaxone Cont Solu Medrol ANCA and Ig E levels pending (2) DVT prophylaxis Comment: HSQ Status and Disposition: inpatient
[2019-06-13] MEDS ORDERED: cefTRIAXone(*) 1 GM in NS 0.9% 50 ML* 50 ML IVPB SCH (16:00)
[2019-06-13] MEDS ORDERED: Azithromycin 500 mg/250 ml NS 500 MG/250 ML BAG IVPB SCH (17:00)
[2019-06-13] MEDS: Tamsulosin CAP* 0.4 MG PO SCH (18:00)
[2019-06-14] MEDS: Heparin VIAL(*) 5000 UNITS/ML VIAL (FIVE THOUSAND) SUBCUT SCH (05:07)
[2019-06-14] MEDS: methylPREDNISolone SOD 40 MG* 1 ML VIAL IV SCH (05:07)
[2019-06-14] MEDS: SPIRIVA Respimat* (tiotropium) 2.5 mcg/inh Inhaler INH SCH (07:17)
[2019-06-14] MEDS: Mometasone/Formoter 200/5 MDI INH SCH (07:17)
[2019-06-14] MEDS: Cholecalciferol TAB* 1000 UNITS PO SCH (07:29)
[2019-06-14] MEDS: Ascorbic Acid TAB* 500 MG PO SCH (07:29)
[2019-06-14] MEDS: Vitamin B Complex TAB PO SCH (07:29)
[2019-06-14] MEDS: Vitamin E CAP* 400 UNIT PO SCH (07:29)
[2019-06-14] MEDS: Fluticasone NASAL SPRAY 50MCG* 16 gm SPRAY BTL BOTH NARES SCH (07:29)
[2019-06-14 11:16] VITALS: BP 138/71
[2019-06-14 17:20] LABS: Immunoglobulin E 34.8 kU/L (<= 214)
--- NOTE | 2019-06-14 20:49 | DS ---
CONTINUATION ADDENDUM NOW INCLUDED ON THIS REPORT CC: Dr. Velazquez; Dr. Kirkpatrick; Dr. Little * DISCHARGE SUMMARY: DATE OF ADMISSION: 06/12/19 DATE OF DISCHARGE: 06/14/19 PRIMARY CARE PROVIDER: Dr. Chai Velazquez. ROUTE DRIVER: Dr. Kirkpatrick. BLUE LEATHER SORTER: Dr. Little. DISPOSITION AT DISCHARGE: Home. CONDITION AT DISCHARGE: Stable. DISCHARGE DIAGNOSIS: Acute hypoxemic respiratory failure due to asthma exacerbation. CONTINUATION ADDENDUM: SECONDARY DIAGNOSES: 1. History of asthma. 2. Alpha-1 antitrypsin deficiency. 3. Bronchiectasis. 4. Allergic rhinitis. 5. Osteoarthritis. 6. 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 MEDICATIONS AT DISCHARGE: Include: 1. Prednisone taper 60 mg daily for 2 days, then 40 mg daily for 2 days, then 20 mg daily for 2 days, then 10 mg daily for 2 days, then stop. 2. Azithromycin 250 mg daily for a total of 3 days, complete a 5 day course. 3. Cefdinir 300 mg b.i.d. for a total of 5 days to continue third generation cephalosporin to complete 7 day course of antibiotics. LABORATORY DATA AND STUDIES PERFORMED DURING THE HOSPITAL STAY: Included: On , white blood cell count 7.5, hemoglobin 15.1, hematocrit 44, and platelets were 233. Sodium 139, potassium 3.7, chloride 106, carbon dioxide 25 , BUN 23, creatinine 1.33. Liver function tests were unremarkable at admission. C-reactive protein 1.68. Portable chest x-ray at admission, impression: "Hyperinflation with no active cardiopulmonary disease." HOSPITALIZATION COURSE: Robbie Hart is a 68-year-old male with history of an alpha-1 antitrypsin deficiency as well as bronchiectasis under the care of Dr. Kirkpatrick and Dr. Little, who presented to the hospital complaining of shortness of breath and wheezing. He was diagnosed with asthma exacerbation, placed on broad spectrum antibiotics. His influenza testing was unremarkable. He was treated with antibiotics and Solu-Medrol with good results. Nevertheless, he continued to be hypoxemic by the time of discharge, although he did not require oxygen when non- ambulating, when ambulatory, his oxygen would drop to 88%. At this point, we are going set him up with oxygen at home at 2 L when ambulating. He is recommended to follow up with Dr. Kirkpatrick in approximately couple of weeks , Dr. Little in approximately a month and the patient's primary care provider in 4 to 7 days. He has used flutter valve at home and he is advised to use it. The remaining medications that are unchanged from admission that the patient is to continue at home include: 1. Acetaminophen on a p.r.n. basis. 2. Albuterol nebulizer on a p.r.n. basis. 3. Albuterol inhaler on a p.r.n. basis. 4. Vitamin C 1500 mg daily. 5. Vitamin D 1000 units daily. 6. Voltaren 75 mg b.i.d. for pain. 7. Tori 180 mg daily. 8. Fluticasone nasal spray 2 sprays both nostrils daily. 9. Advair 250/50 two inhalations b.i.d. 10. Glucosamine with chondroitin 2 capsules daily. 11. Milk of magnesia on a p.r.n. basis. 12. Fish oil 1 capsule daily. 13. Shark fin cartilage dietary supplement 1 capsule daily. 14. Sodium chloride inhalation 1 inhalation b.i.d. 15. Flomax 0.4 mg daily. 16. Spiriva 1 inhalation daily. 17. Turmeric 1 dietary supplement daily. 18. Vitamin E 800 units daily. 19. As mentioned above, azithromycin 250 mg for a total of 3 days daily. 20. Cefdinir 300 mg b.i.d. for a total of 5 days. 21. Prednisone taper as above mentioned. PHYSICAL EXAMINATION: At the time of discharge, blood pressure of 138/71, heart rate of 78 and regular, respiratory rate 20, oxygen saturation 95% at rest on 1 L of oxygen via nasal cannula, temperature 98.5. General: The patient is a pleasant 68-year-old male who is in no acute distress. The patient is alert and oriented x3. HEENT: Head: Atraumatic, normocephalic. Eyes: Pupils equal and reactive to light and accommodation. Oropharynx clear. Mucosa moist. Neck: Supple. No JVD. No bruits bilaterally. Cardiovascular : Regular rate and rhythm. No murmur. Respiratory: Mild rhonchi at right lung base, otherwise clear. Abdomen: Soft, nontender. Bowel sounds present in all 4 quadrants. Extremities: There is no edema. Pulses +2 bilaterally. No clubbing or cyanosis. Neuro Evaluation: Speech clear. Cranial nerves II through XII grossly intact. Motor strength is 5/5 bilaterally. Please note that this is a short summary of the patient's hospital stay. Please refer to further medical records for details. DISPOSITION AT DISCHARGE: Home. CONDITION AT DISCHARGE: Stable. TIME SPENT: Approximately 40 minutes was spent on the patient's discharge. [id number]/[facility] #: [id number]/[facility] #: [id number] ANAHI
--- NOTE | 2019-06-14 20:57 | DS ---
CC: Dr. Kirkpatrick; Dr. Little; Dr. Velazquez DISCHARGE SUMMARY: ADDENDUM: SECONDARY DIAGNOSES: 1. History of asthma. 2. Alpha-1 antitrypsin deficiency. 3. Bronchiectasis. 4. Allergic rhinitis. 5. Osteoarthritis. 6. 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 MEDICATIONS AT DISCHARGE: Include: 1. Prednisone taper 60 mg daily for 2 days, then 40 mg daily for 2 days, then 20 mg daily for 2 days, then 10 mg daily for 2 days, then stop. 2. Azithromycin 250 mg daily for a total of 3 days, complete a 5 day course. 3. Cefdinir 300 mg b.i.d. for a total of 5 days to continue third generation cephalosporin to complete 7 day course of antibiotics. LABORATORY DATA AND STUDIES PERFORMED DURING THE HOSPITAL STAY: Included: On , white blood cell count of 7.5, hemoglobin of 15.1, hematocrit 44, and platelets were 233. Sodium was 139, potassium 3.7, chloride 106, carbon dioxide 25, BUN 23, creatinine 1.33. Liver function tests were unremarkable at admission. C- reactive protein 1.68. Portable chest x-ray at admission, impression: "Hyperinflation with no active cardiopulmonary disease." HOSPITALIZATION COURSE: Robbie Hart is a 68-year-old male with history of an alpha-1 antitrypsin deficiency as well as bronchiectasis under the care of Dr. Kirkpatrick and Dr. Little, who presented to the hospital complaining of shortness of breath and wheezing. He was diagnosed with asthma exacerbation, placed on broad spectrum antibiotics. His influenza testing was unremarkable. He was treated with antibiotics and Solu-Medrol with good results. Nevertheless, he continued to be hypoxemic by the time of discharge, although he did not require oxygen when non- ambulating, when ambulatory, his oxygen would drop to 88%. At this point, we are going set him up with oxygen at home at 2 L when ambulating. He is recommended to follow up with Dr. Kirkpatrick in approximately couple of weeks , Dr. Little in approximately a month and the patient's primary care provider in 4 to 7 days. He has used flutter valve at home and he is advised to use it. The remaining medications that are unchanged from admission that the patient is to continue at home include: 1. Acetaminophen on a p.r.n. basis. 2. Albuterol nebulizer on a p.r.n. basis. 3. Albuterol inhaler on a p.r.n. basis. 4. Vitamin C 1500 mg daily. 5. Vitamin D 1000 units daily. 6. Voltaren 75 mg b.i.d. for pain. 7. Tori 180 mg daily. 8. Fluticasone nasal spray 2 sprays both nostrils daily. 9. Advair 250/50 two inhalations b.i.d. 10. Glucosamine with chondroitin 2 capsules daily. 11. Milk of magnesia on a p.r.n. basis. 12. Fish oil 1 capsule daily. 13. Shark fin cartilage dietary supplement 1 capsule daily. 14. Sodium chloride inhalation 1 inhalation b.i.d. 15. Flomax 0.4 mg daily. 16. Spiriva 1 inhalation daily. 17. Turmeric 1 dietary supplement daily. 18. Vitamin E 800 units daily. 19. As mentioned above, azithromycin 250 mg for a total of 3 days daily. 20. Cefdinir 300 mg b.i.d. for a total of 5 days. 21. Prednisone taper as above mentioned. PHYSICAL EXAMINATION: At the time of discharge, blood pressure of 138/71, heart rate of 78 and regular, respiratory rate 20, oxygen saturation 95% at rest on 1 L of oxygen via nasal cannula, temperature 98.5. General: The patient is a pleasant 68-year-old male who is in no acute distress. The patient is alert and oriented x3. HEENT: Head: Atraumatic, normocephalic. Eyes: Pupils equal and reactive to light and accommodation. Oropharynx clear. Mucosa moist. Neck: Supple. No JVD. No bruits bilaterally. Cardiovascular : Regular rate and rhythm. No murmur. Respiratory: Mild rhonchi at right lung base, otherwise clear. Abdomen: Soft, nontender. Bowel sounds present in all 4 quadrants. Extremities: There is no edema. Pulses +2 bilaterally. No clubbing or cyanosis. Neuro Evaluation: Speech clear. Cranial nerves II through XII grossly intact. Motor strength is 5/5 bilaterally. Please note that this is a short summary of the patient's hospital stay. Please refer to further medical records for details. DISPOSITION AT DISCHARGE: Home. CONDITION AT DISCHARGE: Stable. TIME SPENT: Approximately 40 minutes was spent on the patient's discharge. [id number]/[facility] #: [id number] ANAHI
== END 2019-06-14 15:30 | disposition home health service (06) | DRG 202 ==
LOC: ED 10:34 → MEDTELE 16:18
PROVIDERS: ADMIT Internal Medicine; ATTEND Internal Medicine
DX: J45.901 Unspecified asthma with (acute) exacerbation (principal); J96.01 Acute respiratory failure with hypoxia; J47.1 Bronchiectasis with (acute) exacerbation; M19.90 Unspecified osteoarthritis, unspecified site; N40.1 Benign prostatic hyperplasia with lower urinary tract symptoms; N18.3 Chronic kidney disease, stage 3 (moderate); R33.8 Other retention of urine; E88.01 Alpha-1-antitrypsin deficiency; Z88.6 Allergy status to analgesic agent; Z88.2 Allergy status to sulfonamides; Z87.891 Personal history of nicotine dependence; Z99.81 Dependence on supplemental oxygen; Z79.51 Long term (current) use of inhaled steroids; Z79.899 Other long term (current) drug therapy
CPT/HCPCS: 36415; 71045; 71046; 80053; 82785; 83516; 83605; 84484; 85025; 85652; 86140; 93005; 94640; 96365; 96375; 99284; A9270-GY; J0456; J0696; J1644; J2405; J2920; J2930; J3475; J3535

== ENCOUNTER 2020-01-25 10:39 | Inpatient (IN) ==
[2020-01-25] MEDS ORDERED: methylPREDNISolone 125 mg 2 ML VIAL IV ONE (11:05)
[2020-01-25] MEDS ORDERED: Magnesium Sulfate 2 gm BAG 2 GM/50 ML BAG IVPB ONE (12:06)
[2020-01-25] MEDS ORDERED: Lactated Ringers 1000 ml BAG 1,000 ML IV ONE (12:06)
[2020-01-25] MEDS: Albuterol/Ipratropium NEB.SOL (2.5/0.5 MG) 3 ML NEB.SOLN INH SCH ×6 (12:16→19:32)
[2020-01-25 12:30] LABS: ABS Basophils 0.1 10^3/ul (0-0.2); ABS Eosinophils 0.6 10^3/ul (0-0.6); ABS Lymphocytes 3.9 10^3/ul (1.0-4.8); ABS Monocytes 0.8 10^3/ul (0-0.8); ABS Neutrophils 3.4 10^3/ul (1.5-7.7); Eosinophil % 7.2 %; Hematocrit 46 % (42-52); Hemoglobin 15.4 g/dL (14.0-18.0); Lymphocyte % 44.2 %; Mean Corpuscular HGB Conc 34 g/dL (31-36); Mean Corpuscular Hemoglobin 31 pg (27-31); Mean Corpuscular Volume 91 fL (80-94); Mean Platelet Volume 8.8 fL (7.4-10.4); Nucleated Red Blood Cells % 0.1; Platelet Count 222 10^3/uL (150-450); Red Blood Count 5.01 10^6 /uL (4.18-5.48); Red Cell Distribution Width 14 % (10-15); White Blood Count 8.9 10^3/uL (3.5-10.8)
[2020-01-25 12:42] LABS: Activated Partial Thrombo Time 28.3 seconds (26.0-38.0); INR 1.14 (0.82-1.09)
[2020-01-25 12:59] LABS: Albumin 4.8 g/dL (3.2-5.2); BUN/Creatinine Ratio 20.9 (8-20); Calcium 10.1 mg/dL (8.6-10.3); EGFR African American 76.3 (>60); EGFR Non-African American 63.1 (>60); Globulin 2.4 g/dL (2-4); Potassium 3.9 mmol/L (3.5-5.0); Total Bilirubin 0.6 mg/dL (0.2-1.0); Total Protein 7.2 g/dL (6.4-8.9)
[2020-01-25] MEDS ORDERED: Magnesium Hydroxide LIQ 30 ML UDC PO PRN (13:33)
[2020-01-25] MEDS ORDERED: Ondansetron ODT 4 mg TAB 4 MG TAB PO PRN (13:33)
[2020-01-25 13:44] LABS: Influenza A Molecular Negative (Negative); Influenza B Molecular Negative (Negative)
[2020-01-25] MEDS ORDERED: Albuterol HFA INHALER 8 gm MDI INH PRN (15:28)
[2020-01-25] MEDS: Enoxaparin 40 MG/0.4 ML SYR SUBCUT SCH (17:09)
[2020-01-25] MEDS ORDERED: NS 0.9% 1000 ml BAG 1,000 ML IV SCH (19:00)
[2020-01-25] MEDS: Diclofenac Sod EC 25 mg TAB PO SCH (20:25)
[2020-01-26] MEDS: Albuterol/Ipratropium NEB.SOL (2.5/0.5 MG) 3 ML NEB.SOLN INH SCH ×4 (00:23→11:34)
[2020-01-26] MEDS: SPIRIVA Respimat (tiotropium) 2.5 mcg/inh Inhaler INH SCH (07:05)
[2020-01-26 08:59] LABS: Hematocrit 40 % (42-52); Hemoglobin 13.8 g/dL (14.0-18.0); Mean Corpuscular HGB Conc 35 g/dL (31-36); Mean Corpuscular Hemoglobin 32 pg (27-31); Mean Corpuscular Volume 91 fL (80-94); Mean Platelet Volume 8.8 fL (7.4-10.4); Platelet Count 227 10^3/uL (150-450); Red Blood Count 4.37 10^6 /uL (4.18-5.48); Red Cell Distribution Width 14 % (10-15); White Blood Count 18.1 10^3/uL (3.5-10.8)
[2020-01-26 09:25] LABS: Calcium 9.9 mg/dL (8.6-10.3); EGFR African American 64.5 (>60); EGFR Non-African American 53.3 (>60); Potassium 4.1 mmol/L (3.5-5.0)
[2020-01-26] MEDS: Fluticasone NASAL SPRAY 50MCG 16 gm SPRAY BTL BOTH NARES SCH (09:25)
[2020-01-26] MEDS: Diclofenac Sod EC 25 mg TAB PO SCH ×2 (09:27→19:55)
[2020-01-26] MEDS: Cholecalciferol (VIT D3) 1,000 unit TAB PO SCH (09:27)
[2020-01-26 09:43] LABS: ABS Basophils 0.1 10^3/ul (0-0.2); ABS Lymphocytes 3.9 10^3/ul (1.0-4.8); ABS Monocytes 1.6 10^3/ul (0-0.8); ABS Neutrophils 12.6 10^3/ul (1.5-7.7); Eosinophil % 0.1 %; Lymphocyte % 21.3 %
[2020-01-26] MEDS: Enoxaparin 40 MG/0.4 ML SYR SUBCUT SCH (16:02)
[2020-01-26] MEDS: NS 0.9% 1000 ml BAG 1,000 ML IV SCH (16:08)
[2020-01-26] MEDS: Albuterol 2.5mg/3 ml (0.083%) NEB.SOLN INH PRN (23:03)
[2020-01-27 06:47] LABS: Hematocrit 37 % (42-52); Hemoglobin 12.6 g/dL (14.0-18.0); Mean Corpuscular HGB Conc 35 g/dL (31-36); Mean Corpuscular Hemoglobin 32 pg (27-31); Mean Corpuscular Volume 91 fL (80-94); Mean Platelet Volume 8.6 fL (7.4-10.4); Platelet Count 202 10^3/uL (150-450); Red Blood Count 4.01 10^6 /uL (4.18-5.48); Red Cell Distribution Width 14 % (10-15); White Blood Count 16.1 10^3/uL (3.5-10.8)
[2020-01-27 06:49] LABS: ABS Basophils 0.1 10^3/ul (0-0.2); ABS Eosinophils 0.1 10^3/ul (0-0.6); ABS Lymphocytes 6.6 10^3/ul (1.0-4.8); ABS Monocytes 1.3 10^3/ul (0-0.8); ABS Neutrophils 7.9 10^3/ul (1.5-7.7); Eosinophil % 0.8 %; Lymphocyte % 41.3 %; Nucleated Red Blood Cells % 0.1
[2020-01-27 07:03] LABS: BUN/Creatinine Ratio 20.3 (8-20); Calcium 9.1 mg/dL (8.6-10.3); EGFR African American 70.6 (>60); EGFR Non-African American 58.3 (>60); Potassium 4.2 mmol/L (3.5-5.0)
[2020-01-27] MEDS: NS 0.9% 1000 ml BAG 1,000 ML IV SCH (07:33)
[2020-01-27] MEDS: Cholecalciferol (VIT D3) 1,000 unit TAB PO SCH (07:36)
[2020-01-27] MEDS: Fluticasone NASAL SPRAY 50MCG 16 gm SPRAY BTL BOTH NARES SCH (07:36)
[2020-01-27] MEDS: Diclofenac Sod EC 25 mg TAB PO SCH (07:37)
[2020-01-27] MEDS: Albuterol 2.5mg/3 ml (0.083%) NEB.SOLN INH PRN (07:49)
[2020-01-27] MEDS: SPIRIVA Respimat (tiotropium) 2.5 mcg/inh Inhaler INH SCH (07:49)
[2020-01-27] MEDS ORDERED: Albuterol 2.5mg/3 ml (0.083%) NEB.SOLN INH SCH (11:00)
[2020-01-27 11:09] VITALS: BP 144/71
== END 2020-01-27 14:05 | disposition home or self-care (01) | DRG 192 ==
LOC: ED 10:39 → MED 13:25
PROVIDERS: ADMIT Student in an Organized Health Care Education/Training Program; ATTEND Hospitalist

== ENCOUNTER 2020-07-11 21:51 | Inpatient (IN) ==
[2020-07-11 22:53] LABS: Hematocrit 48 % (42-52); Hemoglobin 16.4 g/dL (14.0-18.0); Mean Corpuscular HGB Conc 34 g/dL (31-36); Mean Corpuscular Hemoglobin 31 pg (27-31); Mean Corpuscular Volume 92 fL (80-94); Mean Platelet Volume 8.6 fL (7.4-10.4); Platelet Count 278 10^3/uL (150-450); Red Blood Count 5.26 10^6 /uL (4.18-5.48); Red Cell Distribution Width 13 % (10-15)
[2020-07-11 23:06] LABS: Albumin 4.6 g/dL (3.2-5.2); Albumin/Globulin Ratio 1.6 (1-3); BUN/Creatinine Ratio 16.4 (8-20); Calcium 9.9 mg/dL (8.6-10.3); EGFR African American 67.4 (>60); EGFR Non-African American 55.7 (>60); Globulin 2.9 g/dL (2-4); Total Bilirubin 0.5 mg/dL (0.2-1.0); Total Protein 7.5 g/dL (6.4-8.9)
[2020-07-11] MEDS ORDERED: Albuterol HFA INHALER 8 gm MDI INH ONE ×2 (23:16→23:32)
[2020-07-12] MEDS ORDERED: cefTRIAXone 2 GM ADDV.VIAL 2 GM in NS 0.9% 100 ml BAG 100 ML IVPB ONE (00:31)
[2020-07-12] MEDS ORDERED: methylPREDNISolone 125 mg 2 ML VIAL IV ONE (00:31)
[2020-07-12] MEDS ORDERED: Albuterol HFA INHALER 8 gm MDI INH ONE (00:32)
[2020-07-12 02:16] LABS: Influenza A Molecular Negative (Negative); Influenza B Molecular Negative (Negative)
[2020-07-12 02:21] LABS: ABS Basophils 0.1 10^3/ul (0-0.2); ABS Eosinophils 0.9 10^3/ul (0-0.6); ABS Lymphocytes 7.5 10^3/ul (1.0-4.8); ABS Monocytes 1.3 10^3/ul (0-0.8); ABS Neutrophils 5.2 10^3/ul (1.5-7.7); Eosinophil % 6.2 %; Nucleated Red Blood Cells % 0.1
[2020-07-12] MEDS ORDERED: Albuterol HFA INHALER 8 gm MDI INH PRN ×3 (03:55→22:18)
[2020-07-12] MEDS ORDERED: methylPREDNISolone SOD 40 mg/ml 1 ml VIAL IV SCH (04:00)
[2020-07-12] MEDS ORDERED: Albuterol/Ipratropium NEB.SOL (2.5/0.5 MG) 3 ML NEB.SOLN INH PRN (04:02)
[2020-07-12] MEDS ORDERED: Ondansetron 4 mg VIAL 2 MG/ML 2 ml VIAL IV PRN (04:16)
[2020-07-12] MEDS: Mometasone/Formoter 200/5 MDI INH SCH ×2 (07:58→20:25)
[2020-07-12] MEDS: SPIRIVA Respimat (tiotropium) 2.5 mcg/inh Inhaler INH SCH ×2 (07:58→12:00)
[2020-07-12] MEDS: methylPREDNISolone SOD 40 mg/ml 1 ml VIAL IV SCH ×2 (11:02→21:33)
[2020-07-12] MEDS: Enoxaparin 40 MG/0.4 ML SYR SUBCUT SCH (11:05)
[2020-07-12] MEDS: AZITHROMYCIN 500 MG TAB PO SCH (11:16)
[2020-07-12 11:52] LABS: Urine Appearance Clear; Urine Bilirubin Negative (Negative); Urine Blood Negative (Negative); Urine Color Yellow; Urine Glucose 2+(150 mg/dL) (Negative); Urine Ketones Negative (Negative); Urine Nitrite Negative (Negative); Urine Protein Negative (Negative); Urine Specific Gravity 1.018 (1.010-1.030); Urine Urobilinogen Negative (Negative)
[2020-07-12] MEDS: Albuterol HFA INHALER 8 gm MDI INH SCH ×2 (15:50→20:25)
[2020-07-13] MEDS: Albuterol/Ipratropium NEB.SOL (2.5/0.5 MG) 3 ML NEB.SOLN INH SCH ×4 (00:58→20:21)
[2020-07-13 06:29] LABS: BUN/Creatinine Ratio 23.1 (8-20); Calcium 9.7 mg/dL (8.6-10.3); EGFR African American 66.2 (>60); EGFR Non-African American 54.7 (>60); Potassium 4.2 mmol/L (3.5-5.0)
[2020-07-13] MEDS: SPIRIVA Respimat (tiotropium) 2.5 mcg/inh Inhaler INH SCH (07:50)
[2020-07-13] MEDS: Mometasone/Formoter 200/5 MDI INH SCH ×2 (07:55→20:30)
[2020-07-13] MEDS: AZITHROMYCIN 500 MG TAB PO SCH (08:05)
[2020-07-13] MEDS: Enoxaparin 40 MG/0.4 ML SYR SUBCUT SCH (08:05)
[2020-07-13] MEDS: methylPREDNISolone SOD 40 mg/ml 1 ml VIAL IV SCH ×2 (08:06→21:33)
[2020-07-13] MEDS ORDERED: cefTRIAXone 1 gm/50 mL NS BAG 1 GM/50 ML BAG IVPB SCH (09:00)
[2020-07-14] MEDS: Albuterol/Ipratropium NEB.SOL (2.5/0.5 MG) 3 ML NEB.SOLN INH SCH ×2 (00:53→07:25)
[2020-07-14 05:06] LABS: Calcium 9.6 mg/dL (8.6-10.3); EGFR Non-African American 56.2 (>60); Potassium 4.4 mmol/L (3.5-5.0)
[2020-07-14] MEDS: Mometasone/Formoter 200/5 MDI INH SCH (07:25)
[2020-07-14] MEDS: SPIRIVA Respimat (tiotropium) 2.5 mcg/inh Inhaler INH SCH (07:25)
[2020-07-14] MEDS ORDERED: Albuterol/Ipratropium NEB.SOL (2.5/0.5 MG) 3 ML NEB.SOLN INH PRN (07:31)
[2020-07-14] MEDS: AZITHROMYCIN 500 MG TAB PO SCH (09:24)
[2020-07-14] MEDS: Enoxaparin 40 MG/0.4 ML SYR SUBCUT SCH (09:27)
[2020-07-14 11:59] VITALS: BP 154/70
== END 2020-07-14 15:00 | disposition home or self-care (01) | DRG 190 ==
LOC: ED 21:51 → MED 07-12 03:46 → MERGE 07-12 03:46 → MED 07-12 06:24
PROVIDERS: ADMIT Internal Medicine; ATTEND Internal Medicine

== ENCOUNTER 2020-10-10 14:38 | Inpatient (IN) ==
[2020-10-10] MEDS ORDERED: Dexamethasone IV 4 MG/ML VIAL 1 ml VIAL IV SLOW PU ONE (16:19)
[2020-10-10 16:46] LABS: Hematocrit 40 % (42-52); Hemoglobin 13.9 g/dL (14.0-18.0); Mean Corpuscular HGB Conc 35 g/dL (31-36); Mean Corpuscular Hemoglobin 32 pg (27-31); Mean Corpuscular Volume 91 fL (80-94); Mean Platelet Volume 8.5 fL (7.4-10.4); Platelet Count 204 10^3/uL (150-450); Red Blood Count 4.41 10^6 /uL (4.18-5.48); Red Cell Distribution Width 14 % (10-15)
[2020-10-10 17:03] LABS: Albumin 4.3 g/dL (3.2-5.2); Albumin/Globulin Ratio 1.5 (1-3); Calcium 9.4 mg/dL (8.6-10.3); EGFR African American 81.2 (>60); EGFR Non-African American 67.1 (>60); Globulin 2.8 g/dL (2-4); Potassium 3.9 mmol/L (3.5-5.0); Total Bilirubin 0.4 mg/dL (0.2-1.0); Total Protein 7.1 g/dL (6.4-8.9)
[2020-10-10 17:20] LABS: ABS Basophils 0.1 10^3/ul (0-0.2); ABS Eosinophils 0.1 10^3/ul (0-0.6); ABS Monocytes 0.9 10^3/ul (0-0.8); Eosinophil % 1.6 %; Lymphocyte % 54.7 %; Nucleated Red Blood Cells % 0.1
[2020-10-10] MEDS ORDERED: Iohexol 300 (CONTRAST) 10 ML SDV IV ONE (17:26)
[2020-10-10] MEDS ORDERED: Gadoteridol (CONTRAST) 279.3 MG/ML 10 ML IV ONE (18:35)
[2020-10-10] MEDS ORDERED: Albuterol 2.5mg/3 ml (0.083%) NEB.SOLN INH PRN (18:45)
[2020-10-10] MEDS ORDERED: Heparin 5000 UNITS/ML 1 mL VIAL SUBCUT ONE (21:00)
[2020-10-10] MEDS: Dexamethasone IV 4 MG/ML VIAL 1 ml VIAL IV SLOW PU SCH (21:30)
[2020-10-10] MEDS: Mometasone/Formoter 200/5 MDI INH SCH (21:30)
[2020-10-11] MEDS: Dexamethasone IV 4 MG/ML VIAL 1 ml VIAL IV SLOW PU SCH ×5 (03:39→21:13)
[2020-10-11 05:44] LABS: Hematocrit 43 % (42-52); Hemoglobin 14.7 g/dL (14.0-18.0); Mean Corpuscular HGB Conc 34 g/dL (31-36); Mean Corpuscular Hemoglobin 31 pg (27-31); Mean Corpuscular Volume 92 fL (80-94); Mean Platelet Volume 8.7 fL (7.4-10.4); Platelet Count 210 10^3/uL (150-450); Red Blood Count 4.68 10^6 /uL (4.18-5.48); Red Cell Distribution Width 14 % (10-15); White Blood Count 11.9 10^3/uL (3.5-10.8)
[2020-10-11 05:48] LABS: Calcium 9.6 mg/dL (8.6-10.3); EGFR African American 65.1 (>60); EGFR Non-African American 53.8 (>60); Magnesium 1.8 mg/dL (1.9-2.7); Potassium 4.3 mmol/L (3.5-5.0)
[2020-10-11] MEDS ORDERED: Magnesium Sulfate 2 gm BAG 2 GM/50 ML BAG IVPB ONE (07:06)
[2020-10-11] MEDS ORDERED: Magnesium Sulfate 2 gm BAG 2 GM/50 ML BAG ONE (07:22)
[2020-10-11] MEDS: Cholecalciferol (VIT D3) 1,000 unit TAB PO SCH (07:39)
[2020-10-11] MEDS: Fluticasone NASAL SPRAY 50MCG 16 gm SPRAY BTL INTRANASAL SCH (07:48)
[2020-10-11] MEDS: Mometasone/Formoter 200/5 MDI INH SCH ×2 (08:00→22:02)
[2020-10-11] MEDS: Albuterol HFA INHALER 8 gm MDI INH PRN ×2 (08:00→13:11)
[2020-10-11] MEDS: SPIRIVA Respimat (tiotropium) 2.5 mcg/inh Inhaler INH SCH (08:06)
[2020-10-11 22:24] LABS: Urine Appearance Clear; Urine Bilirubin Negative (Negative); Urine Blood Negative (Negative); Urine Color Yellow; Urine Glucose 3+(>=500 mg/dL) (Negative); Urine Ketones Negative (Negative); Urine Nitrite Negative (Negative); Urine Protein Negative (Negative); Urine Specific Gravity 1.021 (1.002-1.030); Urine Urobilinogen Negative (Negative)
[2020-10-12] MEDS: Dexamethasone IV 4 MG/ML VIAL 1 ml VIAL IV SLOW PU SCH ×4 (03:14→21:09)
[2020-10-12 04:39] LABS: Hematocrit 42 % (42-52); Mean Corpuscular HGB Conc 34 g/dL (31-36); Mean Corpuscular Hemoglobin 31 pg (27-31); Mean Corpuscular Volume 92 fL (80-94); Platelet Count 248 10^3/uL (150-450); Red Blood Count 4.53 10^6 /uL (4.18-5.48); Red Cell Distribution Width 14 % (10-15); White Blood Count 21.3 10^3/uL (3.5-10.8)
[2020-10-12 04:50] LABS: INR 1.17 (0.82-1.09)
[2020-10-12 04:57] LABS: Calcium 9.4 mg/dL (8.6-10.3); EGFR African American 60.8 (>60); EGFR Non-African American 50.2 (>60); Magnesium 2.1 mg/dL (1.9-2.7); Potassium 4.1 mmol/L (3.5-5.0)
[2020-10-12] MEDS: Fluticasone NASAL SPRAY 50MCG 16 gm SPRAY BTL INTRANASAL SCH (09:07)
[2020-10-12] MEDS: Cholecalciferol (VIT D3) 1,000 unit TAB PO SCH (09:07)
[2020-10-12] MEDS: SPIRIVA Respimat (tiotropium) 2.5 mcg/inh Inhaler INH SCH (10:51)
[2020-10-12] MEDS: Mometasone/Formoter 200/5 MDI INH SCH ×2 (10:52→20:15)
[2020-10-13] MEDS: Dexamethasone IV 4 MG/ML VIAL 1 ml VIAL IV SLOW PU SCH ×3 (05:58→22:31)
[2020-10-13 06:49] LABS: Hematocrit 42 % (42-52); Mean Corpuscular HGB Conc 34 g/dL (31-36); Mean Corpuscular Hemoglobin 31 pg (27-31); Mean Corpuscular Volume 93 fL (80-94); Platelet Count 261 10^3/uL (150-450); Red Blood Count 4.52 10^6 /uL (4.18-5.48); Red Cell Distribution Width 14 % (10-15); White Blood Count 23.6 10^3/uL (3.5-10.8)
[2020-10-13 06:50] LABS: ABS Basophils 0.1 10^3/ul (0-0.2); ABS Lymphocytes 7.8 10^3/ul (1.0-4.8); ABS Monocytes 1.3 10^3/ul (0-0.8); ABS Neutrophils 14.4 10^3/ul (1.5-7.7); Lymphocyte % 33.2 %
[2020-10-13 07:05] LABS: Calcium 9.4 mg/dL (8.6-10.3); Potassium 3.9 mmol/L (3.5-5.0)
[2020-10-13 07:11] LABS: EGFR African American 69.3 (>60); EGFR Non-African American 57.3 (>60)
[2020-10-13] MEDS: Magnesium Hydroxide LIQ 30 ML UDC PO PRN (09:18)
[2020-10-13] MEDS: Fluticasone NASAL SPRAY 50MCG 16 gm SPRAY BTL INTRANASAL SCH (09:18)
[2020-10-13] MEDS: Cholecalciferol (VIT D3) 1,000 unit TAB PO SCH (09:18)
[2020-10-13] MEDS: Mometasone/Formoter 200/5 MDI INH SCH ×2 (10:06→20:11)
[2020-10-13] MEDS: SPIRIVA Respimat (tiotropium) 2.5 mcg/inh Inhaler INH SCH (10:06)
[2020-10-13] MEDS: Saline NASAL SPRAY 0.65% BTL BOTH NARES SCH ×3 (15:00→22:37)
[2020-10-14] MEDS: Saline NASAL SPRAY 0.65% BTL BOTH NARES SCH ×5 (03:29→17:33)
[2020-10-14] MEDS: Dexamethasone IV 4 MG/ML VIAL 1 ml VIAL IV SLOW PU SCH ×3 (06:29→20:56)
[2020-10-14] MEDS: SPIRIVA Respimat (tiotropium) 2.5 mcg/inh Inhaler INH SCH (07:31)
[2020-10-14] MEDS: Mometasone/Formoter 200/5 MDI INH SCH ×2 (07:31→20:48)
[2020-10-14] MEDS: Fluticasone NASAL SPRAY 50MCG 16 gm SPRAY BTL INTRANASAL SCH (09:12)
[2020-10-14] MEDS: Cholecalciferol (VIT D3) 1,000 unit TAB PO SCH (09:13)
[2020-10-14] MEDS: Albuterol HFA INHALER 8 gm MDI INH PRN (20:50)
[2020-10-15] MEDS: Saline NASAL SPRAY 0.65% BTL BOTH NARES SCH ×7 (01:30→22:12)
[2020-10-15] MEDS: Dexamethasone IV 4 MG/ML VIAL 1 ml VIAL IV SLOW PU SCH ×3 (05:45→21:24)
[2020-10-15 06:56] LABS: Hematocrit 42 % (42-52); Hemoglobin 14.5 g/dL (14.0-18.0); Mean Corpuscular HGB Conc 35 g/dL (31-36); Mean Corpuscular Hemoglobin 32 pg (27-31); Mean Corpuscular Volume 91 fL (80-94); Mean Platelet Volume 8.8 fL (7.4-10.4); Platelet Count 279 10^3/uL (150-450); Red Blood Count 4.57 10^6 /uL (4.18-5.48); Red Cell Distribution Width 14 % (10-15)
[2020-10-15] MEDS: SPIRIVA Respimat (tiotropium) 2.5 mcg/inh Inhaler INH SCH (07:19)
[2020-10-15] MEDS: Mometasone/Formoter 200/5 MDI INH SCH ×2 (07:19→20:18)
[2020-10-15 07:34] LABS: ABS Basophils 0.2 10^3/ul (0-0.2); ABS Lymphocytes 10.6 10^3/ul (1.0-4.8); ABS Monocytes 1.6 10^3/ul (0-0.8); ABS Neutrophils 12.6 10^3/ul (1.5-7.7); ABS Nucleated RBC 0.1 10^3/ul; Eosinophil % 0.1 %; Lymphocyte % 42.2 %; Nucleated Red Blood Cells % 0.2
[2020-10-15] MEDS: Cholecalciferol (VIT D3) 1,000 unit TAB PO SCH (08:31)
[2020-10-15] MEDS: Fluticasone NASAL SPRAY 50MCG 16 gm SPRAY BTL INTRANASAL SCH (08:31)
[2020-10-15] MEDS ORDERED: Gadoteridol (CONTRAST) 279.3 MG/ML 10 ML IV ONE (12:06)
[2020-10-16] MEDS: Saline NASAL SPRAY 0.65% BTL BOTH NARES SCH ×3 (03:29→19:42)
[2020-10-16] MEDS: Dexamethasone IV 4 MG/ML VIAL 1 ml VIAL IV SLOW PU SCH ×2 (05:44→19:42)
[2020-10-16] MEDS: Cholecalciferol (VIT D3) 1,000 unit TAB PO SCH (09:21)
[2020-10-16] MEDS: Fluticasone NASAL SPRAY 50MCG 16 gm SPRAY BTL INTRANASAL SCH (09:21)
[2020-10-16] MEDS: Mometasone/Formoter 200/5 MDI INH SCH (11:10)
[2020-10-16] MEDS: SPIRIVA Respimat (tiotropium) 2.5 mcg/inh Inhaler INH SCH (11:10)
[2020-10-16] MEDS ORDERED: Lidocaine 1% w EPI 1:100,000 MDV 20 ML VIAL ONE (14:44)
[2020-10-16] MEDS ORDERED: Thrombin 5,000 UNITS 1 APPLIC KIT - topical use - TOPICAL ONE (14:45)
[2020-10-16] MEDS ORDERED: Bacitracin OINTMENT TUBE ONE ×2 (14:45→14:49)
[2020-10-16] MEDS ORDERED: Bacitracin INJECTION 50,000 UNITS ONE ×3 (14:45→20:40)
[2020-10-16] MEDS ORDERED: Gelfoam Sponge SIZE 100 SPONGE ONE (14:46)
[2020-10-16] MEDS ORDERED: Bacitracin OPHTH.OINT 3.5 GM ONE (14:47)
[2020-10-16] MEDS ORDERED: Propofol 10 MG/ML 20 ML BTL ONE ×6 (14:54→23:32)
[2020-10-16] MEDS ORDERED: Remifentanil 2 MG VIAL ONE ×2 (14:55→18:30)
[2020-10-16] MEDS ORDERED: fentaNYL 250 mcg/5 ml 50 MCG/ML 5 ml VIAL (250 MCG) ONE (14:55)
[2020-10-16] MEDS ORDERED: Rocuronium 50 mg VIAL 10 mg/ml 5 ml VIAL (50 mg) ONE (15:05)
[2020-10-16] MEDS ORDERED: Propofol 10 mg/ml 100 ML BTL 100 ML ONE (15:06)
[2020-10-16] MEDS ORDERED: Phenylephrine IV 10 MG/ML 1 ml VIAL ONE (15:11)
[2020-10-16] MEDS ORDERED: ceFAZolin 2 GM PREMIX 2 GM/50 ML BAG ONE (15:14)
[2020-10-16] MEDS ORDERED: Midazolam 2 mg/2 ml VIAL 1 mg/ml 2 ml VIAL (2 mg) ONE (15:24)
[2020-10-16] MEDS ORDERED: Famotidine IV 10 MG/ML 2 ml VIAL (20 mg) IV SLOW PU ONE (15:29)
[2020-10-16] MEDS ORDERED: Famotidine IV 10 MG/ML 2 ml VIAL (20 mg) ONE (15:29)
[2020-10-16] MEDS: Albuterol HFA INHALER 8 gm MDI INH PRN (15:45)
[2020-10-16] MEDS ORDERED: Dexamethasone IV 4 MG/ML VIAL 1 ml VIAL ONE (16:23)
[2020-10-16] MEDS ORDERED: Furosemide 20 mg/2 ml IV VIAL ONE ×2 (16:23→18:50)
[2020-10-16] MEDS ORDERED: levETIRAcetam IV 500 MG/5 ML VIAL ONE ×2 (16:27→16:28)
[2020-10-16] MEDS ORDERED: Mannitol 25% (12.5 GM) 50 ML 12.5 GM/50 ML VIAL ONE ×3 (16:28→20:13)
[2020-10-16] MEDS ORDERED: EPHEDrine (Pressors) 50 MG/ML VIAL ONE (16:38)
[2020-10-16] MEDS ORDERED: Acetaminophen IV 1 GM/100ML 100 ML ONE (19:08)
[2020-10-16] MEDS ORDERED: ceFAZolin VIAL VIAL ONE (20:50)
[2020-10-16] MEDS ORDERED: Ondansetron 4 mg VIAL 2 MG/ML 2 ml VIAL ONE (22:20)
[2020-10-16] MEDS ORDERED: fentaNYL 100 mcg/2 ml 50 MCG/ML VIAL ONE (22:53)
[2020-10-17] MEDS: Mometasone/Formoter 200/5 MDI INH SCH ×3 (00:47→19:39)
[2020-10-17] MEDS: Saline NASAL SPRAY 0.65% BTL BOTH NARES SCH ×5 (00:49→15:00)
[2020-10-17] MEDS ORDERED: Ondansetron 4 mg VIAL 2 MG/ML 2 ml VIAL IV PRN (01:38)
[2020-10-17] MEDS ORDERED: fentaNYL 100 mcg/2 ml 50 MCG/ML VIAL IV PRN (01:38)
[2020-10-17] MEDS ORDERED: HYDROmorphone 1 MG/1 ML SYRINGE IV PRN (01:38)
[2020-10-17] MEDS ORDERED: Naloxone 0.4 mg VIAL 0.4 mg/ml 1 ml VIAL IV PRN (01:38)
[2020-10-17] MEDS ORDERED: fentaNYL 100 mcg/2 ml 50 MCG/ML VIAL ONE (01:40)
[2020-10-17] MEDS: Dexamethasone IV 4 MG/ML VIAL 1 ml VIAL IV SLOW PU SCH ×4 (02:22→19:57)
[2020-10-17] MEDS: levETIRAcetam 500 MG IVPREMIX 500 MG/100 ML BAG IV SCH ×2 (02:32→14:58)
[2020-10-17] MEDS: niCARdipine 0.1MG/ML IVPREMIX 20 MG/200 ML BAG IV SCH ×5 (03:19→10:20)
[2020-10-17 05:10] LABS: Hematocrit 42 % (42-52); Hemoglobin 14.4 g/dL (14.0-18.0); Mean Corpuscular HGB Conc 34 g/dL (31-36); Mean Corpuscular Hemoglobin 32 pg (27-31); Mean Corpuscular Volume 92 fL (80-94); Mean Platelet Volume 8.4 fL (7.4-10.4); Platelet Count 288 10^3/uL (150-450); Red Blood Count 4.56 10^6 /uL (4.18-5.48); Red Cell Distribution Width 14 % (10-15); White Blood Count 35.8 10^3/uL (3.5-10.8)
[2020-10-17 05:23] LABS: Calcium 8.6 mg/dL (8.6-10.3); EGFR African American 54.1 (>60); EGFR Non-African American 44.7 (>60); Magnesium 2.2 mg/dL (1.9-2.7)
[2020-10-17] MEDS: Morphine 2 MG/ML SYRINGE IV PRN ×4 (05:35→19:57)
[2020-10-17] MEDS ORDERED: Dextrose 50% Syringe 50 ml 25 GM/50 ML SYRINGE IV PUSH PRN ×2 (05:49→11:59)
[2020-10-17 06:06] LABS: Potassium 4.4 mmol/L (3.5-5.0)
[2020-10-17 06:49] LABS: ABS Basophils 0.1 10^3/ul (0-0.2); ABS Lymphocytes 11.8 10^3/ul (1.0-4.8); ABS Monocytes 2.9 10^3/ul (0-0.8); ABS Neutrophils 20.9 10^3/ul (1.5-7.7); ABS Nucleated RBC 0.1 10^3/ul; Nucleated Red Blood Cells % 0.1
[2020-10-17] MEDS: Cholecalciferol (VIT D3) 1,000 unit TAB PO SCH (09:04)
[2020-10-17] MEDS: Fluticasone NASAL SPRAY 50MCG 16 gm SPRAY BTL INTRANASAL SCH (09:05)
[2020-10-17] MEDS: SPIRIVA Respimat (tiotropium) 2.5 mcg/inh Inhaler INH SCH (11:22)
[2020-10-17] MEDS ORDERED: Gadoteridol (CONTRAST) 279.3 MG/ML 10 ML IV ONE (14:30)
[2020-10-17] MEDS: Acetaminophen IV 1 GM/100ML 100 ML IVPB SCH ×2 (14:57→19:58)
[2020-10-17] MEDS: Metoprolol Tartrate 5 mg VIAL 5 ml VIAL (1 mg/ml) IV PRN ×2 (14:58→20:18)
[2020-10-17] MEDS ORDERED: Saline NASAL SPRAY 0.65% BTL BOTH NARES PRN (17:18)
[2020-10-18] MEDS: Dexamethasone IV 4 MG/ML VIAL 1 ml VIAL IV SLOW PU SCH ×5 (02:07→20:24)
[2020-10-18] MEDS: levETIRAcetam 500 MG IVPREMIX 500 MG/100 ML BAG IV SCH ×2 (02:09→13:12)
[2020-10-18] MEDS: Acetaminophen IV 1 GM/100ML 100 ML IVPB SCH (05:13)
[2020-10-18] MEDS: SPIRIVA Respimat (tiotropium) 2.5 mcg/inh Inhaler INH SCH (07:27)
[2020-10-18] MEDS: Mometasone/Formoter 200/5 MDI INH SCH ×2 (07:27→20:12)
[2020-10-18] MEDS: Cholecalciferol (VIT D3) 1,000 unit TAB PO SCH (08:39)
[2020-10-18] MEDS: Fluticasone NASAL SPRAY 50MCG 16 gm SPRAY BTL INTRANASAL SCH (08:46)
[2020-10-18] MEDS: Metoprolol Tartrate 5 mg VIAL 5 ml VIAL (1 mg/ml) IV PRN ×3 (10:57→23:30)
[2020-10-18] MEDS ORDERED: Metoprolol Tartrate 5 mg VIAL 5 ml VIAL (1 mg/ml) IV PRN (11:20)
[2020-10-18] MEDS: Morphine 2 MG/ML SYRINGE IV PRN (13:15)
[2020-10-19] MEDS: Dexamethasone IV 4 MG/ML VIAL 1 ml VIAL IV SLOW PU SCH ×3 (02:08→20:49)
[2020-10-19] MEDS: levETIRAcetam 500 MG IVPREMIX 500 MG/100 ML BAG IV SCH (02:08)
[2020-10-19 04:55] LABS: Hematocrit 36 % (42-52); Hemoglobin 12.2 g/dL (14.0-18.0); Mean Corpuscular HGB Conc 34 g/dL (31-36); Mean Corpuscular Hemoglobin 31 pg (27-31); Mean Corpuscular Volume 92 fL (80-94); Mean Platelet Volume 8.4 fL (7.4-10.4); Platelet Count 247 10^3/uL (150-450); Red Blood Count 3.88 10^6 /uL (4.18-5.48); Red Cell Distribution Width 14 % (10-15); White Blood Count 24.5 10^3/uL (3.5-10.8)
[2020-10-19 05:16] LABS: Calcium 8.5 mg/dL (8.6-10.3); EGFR African American 84.7 (>60); Magnesium 2.2 mg/dL (1.9-2.7); Phosphorus 3.1 mg/dL (2.5-5.0); Potassium 4.2 mmol/L (3.5-5.0)
[2020-10-19] MEDS: Cholecalciferol (VIT D3) 1,000 unit TAB PO SCH (08:18)
[2020-10-19] MEDS: Fluticasone NASAL SPRAY 50MCG 16 gm SPRAY BTL INTRANASAL SCH (08:18)
[2020-10-19] MEDS: Mometasone/Formoter 200/5 MDI INH SCH ×2 (09:17→20:28)
[2020-10-19] MEDS: SPIRIVA Respimat (tiotropium) 2.5 mcg/inh Inhaler INH SCH (09:17)
[2020-10-19] MEDS: Magnesium Hydroxide LIQ 30 ML UDC PO PRN (12:08)
[2020-10-19] MEDS: Metoprolol Tartrate 5 mg VIAL 5 ml VIAL (1 mg/ml) IV PRN (20:49)
[2020-10-20 04:25] LABS: Hematocrit 37 % (42-52); Hemoglobin 12.6 g/dL (14.0-18.0); Mean Corpuscular HGB Conc 35 g/dL (31-36); Mean Corpuscular Hemoglobin 32 pg (27-31); Mean Corpuscular Volume 93 fL (80-94); Mean Platelet Volume 8.2 fL (7.4-10.4); Platelet Count 242 10^3/uL (150-450); Red Blood Count 3.95 10^6 /uL (4.18-5.48); Red Cell Distribution Width 14 % (10-15); White Blood Count 23.3 10^3/uL (3.5-10.8)
[2020-10-20 04:44] LABS: Calcium 8.6 mg/dL (8.6-10.3); EGFR African American 95.1 (>60); EGFR Non-African American 78.6 (>60); Potassium 4.3 mmol/L (3.5-5.0)
[2020-10-20 08:10] LABS: Magnesium 2.1 mg/dL (1.9-2.7)
[2020-10-20] MEDS ORDERED: Dextrose 50% Syringe 50 ml 25 GM/50 ML SYRINGE IV PUSH PRN (08:48)
[2020-10-20] MEDS: Dexamethasone IV 4 MG/ML VIAL 1 ml VIAL IV SLOW PU SCH (09:14)
[2020-10-20] MEDS: NS 0.9% 1000 ml BAG 1,000 ML IV SCH (09:14)
[2020-10-20] MEDS: Fluticasone NASAL SPRAY 50MCG 16 gm SPRAY BTL INTRANASAL SCH (09:14)
[2020-10-20] MEDS: Cholecalciferol (VIT D3) 1,000 unit TAB PO SCH (09:15)
[2020-10-20] MEDS: SPIRIVA Respimat (tiotropium) 2.5 mcg/inh Inhaler INH SCH (09:33)
[2020-10-20] MEDS: Mometasone/Formoter 200/5 MDI INH SCH ×2 (09:33→19:40)
[2020-10-21 05:57] LABS: Hematocrit 37 % (42-52); Hemoglobin 12.7 g/dL (14.0-18.0); Mean Corpuscular HGB Conc 34 g/dL (31-36); Mean Corpuscular Hemoglobin 32 pg (27-31); Mean Corpuscular Volume 93 fL (80-94); Mean Platelet Volume 8.3 fL (7.4-10.4); Platelet Count 231 10^3/uL (150-450); Red Blood Count 4.01 10^6 /uL (4.18-5.48); Red Cell Distribution Width 14 % (10-15); White Blood Count 28.4 10^3/uL (3.5-10.8)
[2020-10-21 06:15] LABS: Calcium 8.8 mg/dL (8.6-10.3); EGFR African American 82.9 (>60); EGFR Non-African American 68.5 (>60); Magnesium 1.9 mg/dL (1.9-2.7)
[2020-10-21 06:21] LABS: ABS Basophils 0.1 10^3/ul (0-0.2); ABS Eosinophils 0.2 10^3/ul (0-0.6); ABS Lymphocytes 15.5 10^3/ul (1.0-4.8); ABS Monocytes 1.9 10^3/ul (0-0.8); ABS Neutrophils 10.8 10^3/ul (1.5-7.7); Eosinophil % 0.6 %; Lymphocyte % 54.6 %; Nucleated Red Blood Cells % 0.1
[2020-10-21] MEDS: Mometasone/Formoter 200/5 MDI INH SCH ×2 (08:24→20:01)
[2020-10-21] MEDS: SPIRIVA Respimat (tiotropium) 2.5 mcg/inh Inhaler INH SCH (08:24)
[2020-10-21] MEDS: Cholecalciferol (VIT D3) 1,000 unit TAB PO SCH (08:39)
[2020-10-21] MEDS: Fluticasone NASAL SPRAY 50MCG 16 gm SPRAY BTL INTRANASAL SCH (08:39)
[2020-10-21] MEDS: NS 0.9% 1000 ml BAG 1,000 ML IV SCH (12:54)
[2020-10-21 12:59] LABS: C Reactive Protein 6.38 mg/L (<8.01)
[2020-10-21 17:55] LABS: Urine Appearance Clear; Urine Bilirubin Negative (Negative); Urine Blood Negative (Negative); Urine Color Yellow; Urine Glucose 3+(>=500 mg/dL) (Negative); Urine Ketones Negative (Negative); Urine Nitrite Negative (Negative); Urine Protein Negative (Negative); Urine Specific Gravity 1.017 (1.002-1.030); Urine Urobilinogen Negative (Negative)
[2020-10-22 05:07] LABS: Hematocrit 36 % (42-52); Hemoglobin 12.6 g/dL (14.0-18.0); Mean Corpuscular HGB Conc 35 g/dL (31-36); Mean Corpuscular Hemoglobin 32 pg (27-31); Mean Corpuscular Volume 91 fL (80-94); Mean Platelet Volume 8.2 fL (7.4-10.4); Platelet Count 234 10^3/uL (150-450); Red Blood Count 3.96 10^6 /uL (4.18-5.48); Red Cell Distribution Width 13 % (10-15); White Blood Count 27.2 10^3/uL (3.5-10.8)
[2020-10-22 08:24] LABS: ABS Basophils 0.1 10^3/ul (0-0.2); ABS Eosinophils 0.2 10^3/ul (0-0.6); ABS Lymphocytes 14.5 10^3/ul (1.0-4.8); ABS Monocytes 1.5 10^3/ul (0-0.8); ABS Neutrophils 10.8 10^3/ul (1.5-7.7); Eosinophil % 0.7 %; Lymphocyte % 53.5 %; Nucleated Red Blood Cells % 0.1
[2020-10-22] MEDS: SPIRIVA Respimat (tiotropium) 2.5 mcg/inh Inhaler INH SCH (08:48)
[2020-10-22] MEDS: Fluticasone NASAL SPRAY 50MCG 16 gm SPRAY BTL INTRANASAL SCH (08:49)
[2020-10-22] MEDS: Mometasone/Formoter 200/5 MDI INH SCH (08:49)
[2020-10-22] MEDS: Cholecalciferol (VIT D3) 1,000 unit TAB PO SCH (08:50)
[2020-10-22 11:30] VITALS: BP 133/64
== END 2020-10-22 13:25 | disposition home or self-care (01) ==
LOC: ED 14:38 → ICU 18:02 → SSU 10-11 13:51 → ICU 10-16 18:57 → SSU 10-18 11:15
PROVIDERS: ADMIT Surgery Surgical Critical Care; ATTEND Pediatrics

== ENCOUNTER 2020-10-30 08:23 | Observation (INO) ==
[2020-10-30 09:25] LABS: Hematocrit 35 % (42-52); Hemoglobin 11.9 g/dL (14.0-18.0); Mean Corpuscular HGB Conc 34 g/dL (31-36); Mean Corpuscular Hemoglobin 32 pg (27-31); Mean Corpuscular Volume 92 fL (80-94); Mean Platelet Volume 8.1 fL (7.4-10.4); Platelet Count 245 10^3/uL (150-450); Red Blood Count 3.74 10^6 /uL (4.18-5.48); Red Cell Distribution Width 14 % (10-15); White Blood Count 16.7 10^3/uL (3.5-10.8)
[2020-10-30 09:27] LABS: ABS Basophils 0.1 10^3/ul (0-0.2); ABS Eosinophils 0.1 10^3/ul (0-0.6); ABS Lymphocytes 6.5 10^3/ul (1.0-4.8); ABS Monocytes 1.3 10^3/ul (0-0.8); ABS Neutrophils 8.6 10^3/ul (1.5-7.7); Eosinophil % 0.4 %; Lymphocyte % 39.3 %
[2020-10-30 09:43] LABS: Albumin/Globulin Ratio 1.3 (1-3); Calcium 9.4 mg/dL (8.6-10.3); EGFR African American 78.7 (>60); Potassium 3.6 mmol/L (3.5-5.0); Total Bilirubin 0.9 mg/dL (0.2-1.0)
[2020-10-30] MEDS ORDERED: Albuterol HFA INHALER 8 gm MDI INH ONE (10:16)
[2020-10-30] MEDS ORDERED: Al Hydrox/Mg Hydrox/Simet LIQ 30 ML UDC PO PRN (11:23)
[2020-10-30] MEDS ORDERED: Ondansetron 4 mg VIAL 2 MG/ML 2 ml VIAL IV PRN (11:23)
[2020-10-30] MEDS ORDERED: Albuterol 2.5mg/3 ml (0.083%) NEB.SOLN INH PRN (11:31)
[2020-10-30] MEDS ORDERED: Dextrose 50% Syringe 50 ml 25 GM/50 ML SYRINGE IV PUSH PRN (12:17)
[2020-10-30] MEDS ORDERED: Gadoteridol (CONTRAST) 279.3 MG/ML 10 ML IV ONE (12:30)
[2020-10-30 14:45] LABS: Urine Appearance Clear; Urine Bilirubin Negative (Negative); Urine Blood Negative (Negative); Urine Color Yellow; Urine Glucose Negative (Negative); Urine Ketones Trace (Negative); Urine Nitrite Negative (Negative); Urine Protein Negative (Negative); Urine Specific Gravity 1.014 (1.002-1.030); Urine Urobilinogen Negative (Negative)
[2020-10-30] MEDS ORDERED: NS 0.9% 1000 ml BAG 1,000 ML IV SCH (17:15)
[2020-10-30] MEDS: Mometasone/Formoter 200/5 MDI INH SCH (19:36)
[2020-10-31 06:26] LABS: Hematocrit 33 % (42-52); Hemoglobin 11.4 g/dL (14.0-18.0); Mean Corpuscular HGB Conc 34 g/dL (31-36); Mean Corpuscular Hemoglobin 32 pg (27-31); Mean Corpuscular Volume 92 fL (80-94); Platelet Count 230 10^3/uL (150-450); Red Blood Count 3.61 10^6 /uL (4.18-5.48); Red Cell Distribution Width 14 % (10-15); White Blood Count 17.1 10^3/uL (3.5-10.8)
[2020-10-31 06:43] LABS: ABS Basophils 0.1 10^3/ul (0-0.2); ABS Eosinophils 0.1 10^3/ul (0-0.6); ABS Lymphocytes 6.2 10^3/ul (1.0-4.8); ABS Monocytes 1.3 10^3/ul (0-0.8); ABS Neutrophils 9.4 10^3/ul (1.5-7.7); Eosinophil % 0.4 %; Lymphocyte % 36.3 %
[2020-10-31 06:52] LABS: Calcium 9.1 mg/dL (8.6-10.3); EGFR African American 89.6 (>60); EGFR Non-African American 74.1 (>60); Potassium 3.9 mmol/L (3.5-5.0)
[2020-10-31] MEDS: Cholecalciferol (VIT D3) 1,000 unit TAB PO SCH (08:03)
[2020-10-31] MEDS: SPIRIVA Respimat (tiotropium) 2.5 mcg/inh Inhaler INH SCH (08:49)
[2020-10-31] MEDS: Mometasone/Formoter 200/5 MDI INH SCH ×2 (08:49→19:32)
[2020-10-31] MEDS ORDERED: Lactated Ringers 1000 ml BAG 1,000 ML IV ONE (17:46)
[2020-11-01 06:35] LABS: Hematocrit 33 % (42-52); Hemoglobin 11.3 g/dL (14.0-18.0); Mean Corpuscular HGB Conc 34 g/dL (31-36); Mean Corpuscular Hemoglobin 32 pg (27-31); Mean Corpuscular Volume 92 fL (80-94); Mean Platelet Volume 8.2 fL (7.4-10.4); Platelet Count 248 10^3/uL (150-450); Red Blood Count 3.58 10^6 /uL (4.18-5.48); Red Cell Distribution Width 14 % (10-15); White Blood Count 17.9 10^3/uL (3.5-10.8)
[2020-11-01 06:43] LABS: ABS Basophils 0.1 10^3/ul (0-0.2); ABS Eosinophils 0.1 10^3/ul (0-0.6); ABS Lymphocytes 6.6 10^3/ul (1.0-4.8); ABS Monocytes 1.4 10^3/ul (0-0.8); ABS Neutrophils 9.7 10^3/ul (1.5-7.7); Eosinophil % 0.5 %; Lymphocyte % 36.7 %
[2020-11-01 06:53] LABS: C Reactive Protein 94.06 mg/L (<8.01); Calcium 9.3 mg/dL (8.6-10.3); EGFR African American 83.8 (>60); EGFR Non-African American 69.3 (>60); Magnesium 1.8 mg/dL (1.9-2.7); Potassium 3.7 mmol/L (3.5-5.0)
[2020-11-01] MEDS: SPIRIVA Respimat (tiotropium) 2.5 mcg/inh Inhaler INH SCH (08:52)
[2020-11-01] MEDS: Albuterol HFA INHALER 8 gm MDI INH PRN ×2 (08:52→19:39)
[2020-11-01] MEDS: Mometasone/Formoter 200/5 MDI INH SCH ×2 (08:55→19:41)
[2020-11-01] MEDS: Cholecalciferol (VIT D3) 1,000 unit TAB PO SCH (09:13)
[2020-11-02 05:59] LABS: Hematocrit 36 % (42-52); Hemoglobin 12.3 g/dL (14.0-18.0); Mean Corpuscular HGB Conc 34 g/dL (31-36); Mean Corpuscular Hemoglobin 31 pg (27-31); Mean Corpuscular Volume 93 fL (80-94); Platelet Count 263 10^3/uL (150-450); Red Blood Count 3.93 10^6 /uL (4.18-5.48); Red Cell Distribution Width 14 % (10-15); White Blood Count 16.7 10^3/uL (3.5-10.8)
[2020-11-02 06:04] LABS: ABS Basophils 0.2 10^3/ul (0-0.2); ABS Eosinophils 0.1 10^3/ul (0-0.6); ABS Lymphocytes 7.1 10^3/ul (1.0-4.8); ABS Monocytes 1.2 10^3/ul (0-0.8); ABS Neutrophils 8.1 10^3/ul (1.5-7.7); Eosinophil % 0.6 %; Lymphocyte % 42.6 %
[2020-11-02 06:19] LABS: C Reactive Protein 104.25 mg/L (<8.01); Calcium 9.7 mg/dL (8.6-10.3); EGFR African American 86.6 (>60); EGFR Non-African American 71.6 (>60); Magnesium 1.9 mg/dL (1.9-2.7); Potassium 3.6 mmol/L (3.5-5.0)
[2020-11-02] MEDS: SPIRIVA Respimat (tiotropium) 2.5 mcg/inh Inhaler INH SCH (09:35)
[2020-11-02] MEDS: Mometasone/Formoter 200/5 MDI INH SCH (09:35)
[2020-11-02] MEDS: Albuterol HFA INHALER 8 gm MDI INH PRN (09:35)
[2020-11-02] MEDS: Cholecalciferol (VIT D3) 1,000 unit TAB PO SCH (10:02)
[2020-11-02 12:50] LABS: Urine Appearance Cloudy; Urine Bilirubin Negative (Negative); Urine Blood Negative (Negative); Urine Color Yellow; Urine Glucose 2+(150 mg/dL) (Negative); Urine Ketones Negative (Negative); Urine Nitrite Negative (Negative); Urine Protein 1+(30 mg/dL) (Negative); Urine Specific Gravity 1.018 (1.002-1.030); Urine Urobilinogen Negative (Negative)
[2020-11-02 13:21] LABS: Urine Bacteria 1+ (Absent); Urine Red Blood Cell 1+(3-5/hpf) (Absent); Urine White Blood Cell 3+(>20/hpf) (Absent)
[2020-11-02 13:33] VITALS: BP 118/67
== END 2020-11-02 15:45 | disposition home or self-care (01) ==
LOC: MED 08:23 → ED 08:23 → MED 16:15
PROVIDERS: ADMIT Hospitalist; ATTEND Student in an Organized Health Care Education/Training Program